=== PATIENT | male | born 1950 | race Hispanic/Latino ===

== ENCOUNTER 2019-10-29 13:47 | Inpatient (IN) | payer MEDICARE, OTHER ==
[~2019-10-29] VITALS: Ht 170.2 cm; Wt 76.1 kg
--- OUTSIDE RECORDS SUMMARY | 2019-10-29 13:50 | XMS REPORT | Continuity of Care Document ---
Author Author Lates[facility] ARAVIND Brower [employer] Address Unknown Phone Unavailable Care Team Providers Care Remarketing Rep Name Role Phone [employer] Unavailable Un available Problems Problem Status Onset Date Classification Date Reported Comments Source UNK Active 1 [facility] Angina (disorder) Active Problem 03/09/2017 [facility] Atrial fibrillation (disorder) Active Problem [facility] Coronary arteriosclerosis (disorder) Active Problem [facility] Diabetes mellitus (disorder) A ctive Problem [facility] Gastroesophageal reflux disease (disorder) Active Problem 03/09/2017 [facility] Inguinal hernia (disorder) Act arnold Problem [facility] Mixed anxiety and depressive disorder (disorder) Active Problem 03/09/2017 [facility] Medications Medication Details Route Status Patient Instructions Ordering Provider Order Date Source Oxycodone Hydrochloride 5 MG Oral Tablet 5 mg, Route: PO, Drug form: TAB, ONCE, Dosing Weight 88.892, kg, PRN Pain Score 4-6, Start date: 03/06/17 12:14:00 CDT Inactive 03/06/2017 [facility] Oxycodone Hydrochloride 5 MG Oral Tablet 5 mg, Route: PO, Drug form: TAB, ONCE, Dosing Weight 88.892, kg, PRN Pain Score 4-6, Start date: 03/06/17 11:20:00 CDT Inactive 03/06/2017 [facility] Hydromorphone 0.5 mg, Route: I [employer], Q5Min, Dosing Weight 88.892, kg, PRN Pain Score 7-10, Start date: 03/06/17 10:20:00 CDT, Duration: 4 doses or times, Stop date: Limited # of times Inactive 03/06/2017 [facility] Fentanyl 25 microgram, Route: IVP, Q5Min, Dosing Weight 88.892, kg, PRN Pain Score 4-6, Priority: Routine, Start date: 03/06/17 10:20:00 CDT, Duration: 4 doses or times, Stop date: Limited # of times Inactive 03/06/2017 [facility] Naloxone 0.4 mg, Route: IVP, Q 2MIN, Dosing Weight 88.892, kg, PRN Narcotic Reversal, Start date: 03/06/17 10:20:00 CDT, Duration: 8 doses or times, Stop date: Limited # of times Inactive 03/06/2017 [facility] Flumazenil 0.2 mg, Route: IVP, PRN, Dosing Weight 88.892, kg, PRN Benzodiazepine Reversal, Initial dose, Start date: 03/06/17 10:20:00 CDT, Duration: 30 day, Stop date: 04/05/17 9:19:00 [employer]ING COORDINATOR Inactive 03/06/2017 [facility] Ondansetron 4 mg, Route: IVP, ONCE, Dosing Weight 88.892, kg, PRN Nausea & Vomiting, Start date: 03/06/17 10:20:00 CDT Inactive 03/06/2017 [facility] Promethazine 6.25 mg, Route: I VPB, ONCE, Dosing Weight 88.892, kg, PRN Nausea & Vomiting, Start date: 03/06/17 10:20:00 CDT Inactive 03/06/2017 [facility] Acetaminophen 325 MG / Hydrocodone Narinder trate 10 MG Oral Tablet 1 tab, PO, Q4H, PRN Pain Score 4-6, 0 Refill(s) Active 03/06/2017 [facility] Acetaminophen 325 MG / Hydrocodone Narinder trate 10 MG Oral Tablet 1 tab, Route: PO, Dosing Weight 88.892, kg, Q4H, PRN Pain Score 4-6, Start date: 03/06/17 10:08:00 CDT, Duration: 30 day, Stop date: 04/05/17 10:07:00 BILLING COORDINATOR Inactive 03/06/2017 [facility] Acetaminophen 325 MG / Hydrocodone Narinder trate 5 MG Oral Tablet 1 tab, Route: PO, Dosing Weight 88.892, kg, Q4H, PRN Pain Score 4-6, Start date: 03/06/17 10:08:00 CDT, Duration: 30 day, Stop date: 04/05/17 10:07:00 BILLING COORDINATOR Inactive 03/06/2017 [facility] Hydromorphone 0.3 mg, Route: I [employer], Q3H, Dosing Weight 88.892, kg, PRN Pain Score 4-6, Start date: 03/06/17 10:08:00 CDT, Duration: 30 day, Stop date: 04/05/17 10:07:00 BILLING COORDINATOR Inactive 03/06/2017 [facility] glycopyrrolate (ANES) Route: I V, Drug form: INJ, ONCE, Stop date: 03/06/17 10:07:00 CDT Inactive 03/06/2017 [facility] neostigmine (ANES) Route: IV, Drug form: INJ, ONCE, Stop date: 03/06/17 10:07:00 CDT Inactive 03/06/2017 [facility] ondansetron (ANES) Route: IV, Drug form: INJ, ONCE, Stop date: 03/06/17 10:07:00 CDT Inactive 03/06/2017 [facility] acetaminophen (ANES) Route: IV , Drug form: INJ, ONCE, Stop date: 03/06/17 10:01:00 CDT Inactive 03/06/2017 [facility] ceFAZolin (ANES) Route: IV, Dr ug form: INJ, ONCE, Stop date: 03/06/17 8:46:00 CDT Inactive 03/06/2017 [facility] propofol (ANES) Route: IV, Aries g form: INJ, ONCE, Stop date: 03/06/17 8:36:00 CDT Inactive 03/06/2017 [facility] fentaNYL (ANES) Route: IV, Aries g form: INJ, ONCE, Stop date: 03/06/17 8:36:00 CDT Inactive 03/06/2017 [facility] lidocaine (ANES) Route: IV, Dr ug form: INJ, ONCE, Stop date: 03/06/17 8:36:00 CDT Inactive 03/06/2017 [facility] rocuronium (ANES) Route: IV, D rug form: INJ, ONCE, Stop date: 03/06/17 8:36:00 CDT Inactive 03/06/2017 [facility] phenylephrine (ANES) Route: IV , Drug form: INJ, ONCE, Stop date: 03/06/17 8:26:00 CDT Inactive 03/06/2017 [facility] 72 HR Scopolamine 0.0139 MG/HR Transdermal Patch 1 patch, Route: TOP, Drug Form: ERFILM, Dosing Weight 88.892, kg, ONCE, Start date: 03/06/17 7:41:00 CDT, Stop date: 03/06/17 7:41:00 CDT Inactive 03/06/2017 [facility] LR 1000 mL INJ (ANES) Route: I V, Total Volume: 1,000, Start date: 03/06/17 7:30:00 CDT, Stop date: 03/06/17 8:30:00 CDT Inactive 03/06/2017 [facility] Calcium Chloride 0.0014 MEQ/ML / Potassi um Chloride 0.004 MEQ/ML / Sodium Chloride 0.103 MEQ/ML / Sodium Lactate 0.028 MEQ/ML Injectable Solution 1,000 mL, Rate: 25 ml/hr, Infuse over: 4 0 hr, Route: IV, Dosing Weight 88.892 kg, Total Volume: 1,000, Start date: 03/06/17 7:18:00 CDT, Duration: 1 day, Stop date: 03/07/17 7:17:00 CDT Inactive 03/06/2017 [facility] glimepiride 4 mg oral tablet 4 mg = 1 tab, PO, Breakfast, # 30 tab, 0 Refill(s) Active 03/02/2017 [facility] Furosemide 40 MG Oral Tablet 4 0 mg = 1 tab, PO, Daily, # 30 tab, 0 Refill(s) Active 03/02/2017 [facility] AMIODarone 200 mg oral tablet See Instructions, 0.5 tab in the AM and 0.5 tab in the PM, 0 Refill(s) Active 03/02/2017 [facility] rivaroxaban 20 MG Oral Tablet [Xarelto] 20 mg = 1 tab, PO, QPM, # 30 tab, 3 Refill(s) No Longer Active 03/02/2017 [facility] metoprolol 100 mg oral tablet, extended release 100 mg = 1 tab, PO, Daily, # 30 tab, 0 Refill(s) Active 03/02/2017 [facility] escitalopram 10 mg oral tablet 10 mg = 1 tab, PO, Daily, # 30 tab, 0 Refill(s) Active 03/02/2017 [facility] isosorbide mononitrate 30 mg oral tablet , extended release 30 mg = 1 tab, PO, QAM, # 30 tab, 0 Refill(s) Active 03/02/2017 [facility] pantoprazole 40 mg oral enteric coated tablet 40 mg = 1 tab, PO, Daily, # 30 tab, 0 Refill(s) Active 03/02/2017 [facility] levothyroxine 50 mcg (0.05 mg) oral tablet 50 microgram = 1 tab, PO, Daily, # 30 tab, 0 Refill(s) Active 03/02/2017 [facility] Allergies, Adverse Reactions, Alerts No Known Medication Allergies Immunizations No Data Provided for This Section Results Order Name Results Value Reference Range Date Interpretation Comments Source CHEM PANEL Globulin 4.2 2.7 - 4.2 03/02/2017 [facility] CHEM PANEL B/C Ratio 9 6 - 25 03/02/2017 [facility] CHEM PANEL AGAP 15.2 10.0 - 20.0 03/02/2017 [facility] CHEM PANEL A/G Ratio 0.9 0.7 - 1.6 03/02/2017 [facility] CHEM PANEL eGFR 47 03/02/2017 Result Comment: The eGFR is calculated using the CKD-EPI formula. In most young, healthy individuals the eGFR will be >90 mL/min/1.73m2. The eGFR declines with age. An eGFR of 60-89 may be normal in some populations, particularly the elderly, for whom the CKD-EPI formula has not been extensively validated. Use of the eGFR is not recommended in the following populations:

Individuals with unstable creatinine concentrations, including patients and those with serious co-morbid conditions.

Patients with extremes in muscle mass or diet.

The data above are obtained from the National Kidney Disease Education Program (NKDEP) which additionally recommends that when the eGFR is used in patients with extremes of body mass index for purposes of drug dosing, the eGFR should be multiplied by the estimated BMI. [facility] CHEM PANEL Potassium Lvl 4.2 3.5 - 5.1 03/02/2017 [facility] CHEM PANEL Chloride Lvl 103 95 - 109 03/02/2017 [facility] CHEM PANEL Sodium Lvl 142 135 - 145 03/02/2017 [facility] CHEM PANEL Calcium Lvl 9.2 8.5 - 10.5 03/02/2017 [facility] CHEM PANEL Total Protein 8.0 6.4 - 8.4 03/02/2017 [facility] CHEM PANEL CO2 28 24 - 32 03/02/2017 [facility] CHEM PANEL Albumin Lvl 3.8 3.5 - 5.0 03/02/2017 [facility] CHEM PANEL ALT 67 0 - 65 03/02/2017 [facility] CHEM PANEL AST 48 0 - 37 03/02/2017 [facility] CHEM PANEL Alk Phos 116 39 - 136 03/02/2017 [facility] CHEM PANEL Bili Total 0.7 0.2 - 1.3 03/02/2017 [facility] CHEM PANEL Creatinine Lvl 1.50 0.50 - 1.40 03/02/2017 [facility] CHEM PANEL BUN 13 7 - 22 03/02/2017 [facility] CHEM PANEL Glucose Lvl 143 70 - 99 03/02/2017 [facility] HEMATOLOGY RDW 14.8 11.5 - 14.5 03/02/2017 [facility] HEMATOLOGY MPV 8.7 7.4 - 10.4 03/02/2017 [facility] HEMATOLOGY Platelet 191 133 - 450 03/02/2017 [facility] HEMATOLOGY MCHC 33.2 32.0 - 36.0 03/02/2017 [facility] HEMATOLOGY MCH 28.8 27.0 - 31.0 03/02/2017 [facility] HEMATOLOGY MCV 86.6 80.0 - 94.0 03/02/2017 [facility] HEMATOLOGY WBC 6.2 3.7 - 10.4 03/02/2017 [facility] HEMATOLOGY RBC 4.87 4.70 - 6.10 03/02/2017 [facility] HEMATOLOGY Hgb 14.0 14.0 - 18.0 03/02/2017 [facility] HEMATOLOGY Hct 42.2 42.0 - 54.0 03/02/2017 [facility] HEMATOLOGY Lymphocytes 27.7 20.0 - 40.0 03/02/2017 [facility] HEMATOLOGY Segs 59.9 45.0 - 75.0 03/02/2017 [facility] HEMATOLOGY Basophils 0.3 0.0 - 1.0 03/02/2017 [facility] HEMATOLOGY Eosinophils 2.9 0.0 - 4.0 03/02/2017 [facility] HEMATOLOGY Monocytes 9.2 2.0 - 12.0 03/02/2017 [facility] HEMATOLOGY Eosinophils # 0.2 0.0 - 0.5 03/02/2017 [facility] HEMATOLOGY Segs-Bands # 3.7 1.5 - 8.1 03/02/2017 [facility] HEMATOLOGY Monocytes # 0.6 0.0 - 0.8 03/02/2017 [facility] HEMATOLOGY Lymphocytes # 1.7 1.0 - 5.5 03/02/2017 [facility] Pathology Reports No Data Provided for This Section Diagnostic Reports No Data Provided for This Section Consultation Notes No Data Provided for This Section Discharge Summaries No Data Provided for This Section History and Physicals No Data Provided for This Section Vital Signs Vital Sign Value Date Comments Source Systolic (mm Hg) 130 03/06/2017 [facility] Diastolic (mm Hg) 70 03/06/2017 [facility] Systolic (mm Hg) 118 03/06/2017 [facility] Diastolic (mm Hg) 53 03/06/2017 [facility] Respitory Rate 12 03/06/2017 [facility] Systolic (mm Hg) 120 03/06/2017 [facility] Diastolic (mm Hg) 78 03/06/2017 [facility] Respitory Rate 12 03/06/2017 [facility] Respitory Rate 14 03/06/2017 [facility] Heart Rate 100 03/06/2017 [facility] Temperature Oral (F) 98.3 F 03/02/2017 [facility] Heart Rate 59 03/02/2017 [facility] Weight 88.892 03/02/2017 [facility] BMI Calculated 28.94 03/02/2017 [facility] Height 175.26 cm 03/02/2017 [facility] Encounters Location Location Details Encounter Type Encounter Number Reason For Visit Attending Provider ADM Date DC Date Status Source [facility] [id number] Thor Osei 03/06/2017 03/06/2017 [facility] Procedures Procedure Code Date Perfomer Comments Source BA - Barium enema [id number] [facility] Biopsy of lymph node [id number] [facility] CABG x 2 - Coronary artery bypass grafts x 2 [id number] [facility] Colonoscopy [id number] [facility] Assessment and Plan No Data Provided for This Section Plan of Care No Data Provided for This Section Social History Social History Date Source Social History TypeResponse Substance Abuse Use: None. Alcohol Past, Previous treatment: None. Smoking Status Former smoker; Exposure to Tobacco Smoke None; Cigarette Smoking Last 365 Days No; Reg Smoking Cessation Counseling No 03/02/2017 [facility] Family History No Data Provided for This Section Advance Directives No Data Provided for This Section Functional Status No Data Provided for This Section
--- OUTSIDE RECORDS SUMMARY | 2019-10-29 13:50 | XMS REPORT | Continuity of Care Document ---
Author Author [facility] t Organization [facility] Address [address] [place] [address] Phone Unavailable Care Team Providers Care Outreach Liaison Name Role Phone SHAQ MARISCAL Attphys Unavailable Brayden Osei Attphys Payers Payer Name Policy Type Policy Number Effective Date Expiration Date S ource Problems Condition Name Condition Details Condition Category Status Onset Date Resolution Date Last Treatment Date Treating Clinician Comments Source NELSON RYDERK Active 02/27/2017 [facility] Diagnosis Active 2017-02-27 00:00:00 2017-03-06 10:37:00 M nayan Hitchcock Angina (disorder) Ermelinda na (disorder) Active Problem 03/09/2017 [facility] Problem Active 2017-03-09 01:10:28 Latesha Hitchcock Atrial fibrillation (disorder) Atrial fibrillation (disorder) Active Problem 03/09/2017 [facility] Problem Active 2017-03-09 01:10:28 Latesha Hitchcock Coronary arteriosclerosis (disorder) Coronary arteriosclerosis (disorder) Active Problem 03/09/2017 [facility] Problem Active 2017-03-09 01:10:28 Latesha Hitchcock Diabetes mellitus (disorder) D iabetes mellitus (disorder) Active Problem 03/09/2017 [facility] Problem Active 2017-03-09 01:10:28 Latesha Hitchcock Gastroesophageal reflux disease (disorder) Gastroesophageal reflux disease (disorder) Active Problem 03/09/2017 [facility] Problem Active 2017-03-09 01:10:28 [facility] [place] Inguinal hernia (disorder) Ing uinal hernia (disorder) Active Problem 03/09/2017 [facility] Problem Active 2017-03-09 01:10:28 Latesha Hitchcock Mixed anxiety and depressive disorder (disorder) Mixed anxiety and depressive disorder (disorder) Active Problem 03/09/2017 [facility] Problem Active 2017-03-09 01:10:28 [facility] Allergies, Adverse Reactions, Alerts Allergy Name Allergy Type Status Severity Reaction(s) Onset Date Inacti ve Date Treating Clinician Comments Source No Known Allergies DA Active U 2017-02-21 00:00:00 [facility] Social History Social Habit Start Date Stop Date Quantity Comments Source Social History 2017-03-02 19:53:32 2017-03-02 19:53:32 [facility] [place] Medications Ordered Medication Name Filled Medication Name Start Date Stop Da te Current Medication? Ordering Clinician Indication Dosage Frequency Signature (SIG) Comments Components Source Oxycodone Hydrochloride 5 MG Oral Tablet 2017-03-06 17:14:00 No 5 mg, Route: PO, Drug form: TAB, ONCE, Dosing Weight 88.892, kg, PRN Pain Score 4- 6, Start date: 03/06/17 12:14:00 CDT [facility] oriaurora Hitchcock Oxycodone Hydrochloride 5 MG Oral Tablet 2017-03-06 16:20:00 No 5 mg, Route: PO, Drug form: TAB, ONCE, Dosing Weight 88.892, kg, PRN Pain Score 4- 6, Start date: 03/06/17 11:20:00 CDT [facility] Hitchcock Hydromorphone 2017-03-06 15:20:00 No 0.5 mg, Route: IVP, Q5Min, Dosing Weight 88.892, kg, PRN Pain Score 7-10, Start date: 03/06/17 10:20:00 CDT, Duration: 4 doses or times, Stop date: Limited # of times [facility] [place] Fentanyl 2017-03-06 15:20:00 No 25 microgram, Route: IVP, Q5Min, Dosing Weight 88.892, kg, PRN Pain Score 4-6, Priority: Routine, Start date: 03/06/17 10:20:00 CDT, Duration: 4 doses or times, Stop date: Limited # of times Latesha Hitchcock Naloxone 2017-03-06 15:20:00 No 0.4 mg, Route: IVP, Q2MIN, Dosing Weight 88.892, kg, PRN Narcotic Reversal, Start date: 03/06/17 10:20:00 CDT, Duration: 8 doses or times, Stop date: Limited # of times Latesha Hitchcock Flumazenil 2017-03-06 15:20:00 No 0.2 mg, Route: IVP, PRN, Dosing Weight 88.892, kg, PRN Benzodiazepine Reversal, Initial dose, Start date: 03/06/17 10:20:00 CDT, Duration: 30 day, Stop date: 04/05/17 9:19:00 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 [place] Promethazine 2017-03-06 15:20:00 No 6.25 mg, Route: IVPB, ONCE, Dosing Weight 88.892, kg, PRN Nausea & Vomiting, Start date: 03/06/17 10:20:[address] [facility] [place] Acetaminophen 325 MG / Hydrocodone Bitartrate 10 MG Oral Tab let 2017-03-06 15:10:00 Yes 1 tab, PO, Q4H, PRN Pain Scor e 4-6, 0 Refill(s) [facility] Acetaminophen 325 MG / Hydrocodone Bitartrate 10 MG Oral Tab let 2017-03-06 15:08:00 No 1 tab, Rou te: PO, Dosing Weight 88.892, kg, Q4H, PRN Pain Score 4-6, Start date: 03/06/17 10:08:00 CDT, Duration: 30 day, Stop date: 04/05/17 10:07:[address]EMENT [address]MINISTRATOR [facility] [place] Acetaminophen 325 MG / Hydrocodone Bitartrate 5 MG Oral Tabl et 2017-03-06 15:08:00 No 1 tab, Rou te: PO, Dosing Weight 88.892, kg, Q4H, PRN Pain Score 4-6, Start date: 03/06/17 10:08:00 CDT, Duration: 30 day, Stop date: 04/05/17 10:07:00 [facility] Hydromorphone 2017-03-06 15:08:00 No 0.3 mg, Route: IVP, Q3H, Dosing Weight 88.892, kg, PRN Pain Score 4-6, Start date: 03/06/17 10:08:00 CDT, Duration: 30 day, Stop date: 04/05/17 10:07:00 [facility] glycopyrrolate (ANES) 2017-03-06 15:07:00 No Route: IV, Drug form: INJ, ONCE, Stop date: 03/06/17 10:07:00 CDT [facility] neostigmine (ANES) 2017-03-06 15:07:00 No Route: IV, Drug form: INJ, ONCE, Stop date: 03/06/17 10:07:00 [facility] (GINAS[facility] 2017-03-06 15:07:00 No Route: IV, Drug form: INJ, ONCE, Stop date: 03/06/17 10:07:00 CDT [facility] acetaminophen (ANES) 2017-03-06 15:01:00 No Route: IV, Drug form: INJ, ONCE, Stop date: 03/06/17 10:01:00 CDT [facility] ceFAZolin ([facility]) 2017-03-06 13:46:00 No Route: IV, Drug form: INJ, ONCE, Stop date: 03/06/17 8:46:00 CDT [facility] [place] propofol (ANES) 2017-03-06 13:36:00 No Route: IV, Drug form: INJ, ONCE, Stop date: 03/06/17 8:36:00 [facility] fenta[facility]L (ANES) 2017-03-06 13:36:00 No Route: IV, Drug form: INJ, ONCE, Stop date: 03/06/17 8:36:00 [facility] (ANES) 2017-03-06 13:36:00 No Route: IV, Drug form: INJ, ONCE, Stop date: 03/06/17 8:36:00 CDT Nd dann Hitchcock rocuronium (ANES) 2017-03-06 13:36:00 No Route: IV, Drug form: INJ, ONCE, Stop date: 03/06/17 8:36:00 CDT [facility] [place] phenylephrine (ANES) 2017-03-06 13:26:00 No Route: IV, Drug form: INJ, ONCE, Stop date: 03/06/17 8:26:00 CDT Latesha Hitchcock 72 HR Scopolamine 0.0139 MG/HR Transdermal Patch 2017-03-06 12:4 1:00 No 1 patch, Route: TOP, Drug Fo rm: ERFILM, Dosing Weight 88.892, kg, ONCE, Start date: 03/06/17 7:41:00 CDT, Stop date: 03/06/17 7:41:00 CDT Latesha Hitchcock LR 1000 mL INJ (ANES) 2017-03-06 12:30:00 No Route: IV, Total Volume: 1,000, Start date: 03/06/17 7:30:00 CDT, Stop date: 03/06/17 8:30:00 CDT Latesha Hitchcock Calcium Chloride 0.0014 MEQ/ML / Potassi um Chloride 0.004 MEQ/ML / Sodium Chloride 0.103 MEQ/ML / Sodium Lactate 0.028 MEQ/ML Injectable Solution 2017-03-06 12:18:00 No 1,000 mL, Rate: 25 ml/hr, Infuse over: 40 hr, Route: IV, Dosing Weight 88.892 kg, Total Volume: 1,000, Start date: 03/06/17 7:18:00 CDT, Duration: 1 day, Stop date: 03/07/17 7:17:00 CDT Latesha Hitchcock glimepiride 4 mg oral tablet 2017-03-02 20:27:00 Yes 4 mg = 1 tab, PO, Breakfast, # 30 tab, 0 Refill(s) [facility] [place] Furosemide 40 MG Oral Tablet 2017-03-02 20:26:00 Yes 40 mg = 1 tab, PO, Daily, # 30 tab, 0 Refill(s) Alphonseoria l [place] AMIODarone 200 mg oral tablet 2017-03-02 20:26:00 Yes See Instructions, 0.5 tab in the AM and 0.5 tab in the PM, 0 Refill(s) Latesha Hitchcock rivaroxaban 20 MG Oral Tablet [Xarelto] 2017-03-02 20:26:00 No 20 mg = 1 tab, PO, QPM, # 30 tab, 3 Refill(s) Latesha Hitchcock metoprolol 100 mg oral tablet, extended release 2017-03-02 20:26 :00 Yes 100 mg = 1 tab, PO, Daily, # 30 tab, 0 Refill(s) Latesha Hitchcock escitalopram 10 mg oral tablet 2017-03-02 20:25:00 Yes 10 mg = 1 tab, PO, Daily, # 30 tab, 0 Refill(s) [facility] [address] isosorbide mononitrate 30 mg oral tablet, extended release 2017-03-02 20:25:00 Yes 30 mg = 1 tab, PO, QAM, # 30 ta b, 0 Refill(s) Latesha Hitchcock pantoprazole 40 mg oral enteric coated tablet 2017-03-02 20:25:0 0 Yes 40 mg = 1 tab, PO, Daily, # 30 tab, 0 Refill(s) Latesha Hitchcock levothyroxine 50 mcg (0.05 mg) oral tablet 2017-03-02 20:25:00 Yes 50 microgram = 1 tab, PO, Daily, # 30 tab, 0 Refill(s) Latesha Hitchcock Vital Signs Vital Name Observation Time Observation Value Comments Source Systolic (mm Hg) 2017-03-06 18:15:00 [facility]to [facility] [place] Diastolic (mm Hg) 2017-03-06 18:15:00 [facility] [place] Systolic (mm Hg) 2017-03-06 16:00:00 Gilberto rial [place] Diastolic (mm Hg) 2017-03-06 16:00:00 Mem [facility] [place] Respitory Rate 2017-03-06 16:00:00 Memori al [place] Systolic (mm Hg) 2017-03-06 15:45:00 Gilberto rial [place] Diastolic (mm Hg) 2017-03-06 15:45:00 Mem [facility] [place] Respitory Rate 2017-03-06 15:45:00 Mem[facility] [place] Respitory Rate 2017-03-06 15:30:00 [facility] Heart Rate 2017-03-06 12:19:00 Latesha Hitchcock Temperature Oral (F) 2017-03-02 19:57:00 98.3 F [facility] [place] Heart Rate 2017-03-02 19:57:00 [facility] [place] Weight 2017-03-02 19:57:00 [facility] [place] BMI Calculated 2017-03-02 19:57:00 [facility] Height 2017-03-02 19:57:00 175.26 cm [facility] Procedures Procedure Date / Time Performed Performing Clinician Sourluis enrique e BA - Barium enema [facility] Biopsy of lymph node [facility] rmann CABG x 2 - Coronary artery bypass grafts x 2 [facility] Colonoscopy [facility] Encounters Start Date/Time End Date/Time Encounter Type Admission Type [facility] Care Department Encounter ID Source 2017-03-06 05:33:00 2017-03-06 13:39:[address] [id number] Results Test Description Test Time Test Comments Results Result Comments Source US ABDOMEN COMPLETE 2019-05-05 15:11:00 [place] [address] Patient Name: ARAVIND MATTHEWS MR #: [id number] : 1950 Age/Sex: 68/M Req #: [id number] Adm Physician: Ordered by: SHAQ MARISCAL MD Report #: [id number] Location: MS Room/Bed: Procedure: [id number] US/US ABDOMEN COMPLETE Exam Date: 05/05/19 Exam Time: 0858 REPORT STATUS: Signed EXAM: US ABDOMEN COMPLETE DATE: 05/05/2019 7:57 AM INDICATION: Abdominal pain COMPARISON: None TECHNIQUE: Transverse and longitudinal vallecillo scale and color doppler sonographic images of the upper abdomen were obtained. FINDINGS: LIVER 13.0 cm in the right midclavicular line. Normal echogenicity of the liver with normal contour, no masses. Right hepatic cyst measures 2.1 cm. SPLEEN 11 point cm in maximum diameter. Normal echogenicity, no masses. GALLBLADDER Small amount of sludge in the gallbladder. No gallbladder wall thickening, distension, stone, or pericholecystic fluid. Negative reported sonographic Ballesteros's sign. The gallbladder wall measures 3 mm. BILE DUCTS No intra nor extra-hepatic biliary dilation. Common bile duct measures 4 mm PANCREAS: Visualized portions are normal. RIGHT KIDNEY: 11.2 cm Echogenicity: Normal Collecting System: No hydronephrosis Stones: None Cyst/Mass: Multiple simple cysts, the largest measuring up to 2.6 cm at the lower pole. LEFT KIDNEY: 11.2 cm Echogenicity: Normal Collecting System: No hydronephrosis Stones: None Cyst/Mass: Multiple simple cysts, the largest measuring up to 4.7 cm at the midpole. VESSELS: Aorta: Visualized portions are within normal size limits Inferior Vena Cava: Visualized portions are normal Main Portal Vein: 1.0 cm, normal size with hepatopetal flow. FREE FLUID: None IMPRESSION: Gallbladder sludge without sonographic evidence of cholecystitis. Simple renal cysts as above. Right hepatic cyst. Signed by: Janelle Galarza MD on 05/05/2019 3:14 PM Dictated By: JANELLE GALARZA MD Transcribed By: LAN on 05/05/19 1513 COPY TO: SHAQ MARISCAL MD CT BRAIN WO 2019-05-05 12:09:00 [place] [address] Patient Name: ARAVIND MATTHEWS MR #: [id number] : 1950 Age/Sex: 68/M Req #: [id number] Adm Physician: Ordered by: SHAQ MARISCAL MD Report #: [id number] Location: CT Room/Bed: Procedure: [id number] CT/CT BRAIN WO Exam Date: 05/05/19 Exam Time: 814 REPORT STATUS: Signed CT BRAIN WO HISTORY: Weakness, headache COMPARISON: None. Technique: Noncontrast axial scans were obtained from skull base to the vertex. Coronal and sagittal reconstructions obtained from the axial data. One or more of the following dose reduction techniques were used: Automated exposure control, adjustment of the mA and/or kV according to patient size, and/or utilization of iterative reconstruction technique. DISCUSSION: Scalp/Skull: Unremarkable. Brain sulci: Mildly prominent. Ventricles: Compensatory dilatation. Extra-axial spaces: No masses or fluid collections. Carotid siphon calcifications are present. Parenchyma: No definite abnormal densities. No masses, hemorrhage, or large vascular territory acute infarct. Dural sinuses: No abnormal densities. Sellar/Suprasellar region: Intact. Skull base: Intact. Incidental findings: None. IMPRESSION: 1. No acute intracranial abnormalities. 2. Generalized cerebral volume loss. Signed by: Dr. Luis Angel Lam M.D. on 05/05/2019 12:11 PM Dictated By: LUIS ANGEL LAM MD 1211 Transcribed By: LAN on 05/05/19 1211 COPY TO: SHAQ MARISCAL MD CHEST 2 VIEWS 2019-05-05 09:09:00 [place] [address] Patient Name: ARAVIND MATTHEWS MR #: [id number] : 1950 Age/Sex: 68/M Req #: [id number] Adm Physician: Ordered by: SHAQ MARISCAL MD Report #: [id number] Location: CT Room/Bed: Procedure: [id number] DX/CHEST 2 VIEWS Exam Date: 05/05/19 Exam Time: 813 REPORT STATUS: Signed EXAMINATION: CHEST 2 VIEWS INDICATION: Shortness of breath COMPARISON: None FINDINGS: LINES/TUBES:Left chest pacer. LUNGS:The lungs are well-inflated. There is perihilar fullness and indistinctness of the pulmonary vasculature. PLEURA:Trace right pleural effusion. No pneumothorax. MEDIASTINUM:The cardiomediastinal silhouette appears slightly enlarged. Postoperative findings of prior CABG. BONES/SOFT TISSUES:Sternotomy wires intact. ABDOMEN:No free air under the diaphragm. IMPRESSION: Mild interstitial pulmonary edema. Trace right pleural effusion. Signed by: Janelle Galarza MD on 05/05/2019 9:11 AM Dictated By: JANELLE GALARZA MD 0 Transcribed By: LAN on 05/05/19910 COPY TO: SHAQ MARISCAL MD GASTRIC,BIOPSY 2018-07-17 15:20:00 RUN DATE: 07/17/18 [facility] PAGE 1 RUN TIME: 1520 Specimen Inquiry RUN USER: INTERFACE PATIENT: ARAVIND MATTHEWS LOC: ANGEL Landrum #: [id number] AGE/SX: 67/M ROOM: RE07/16/18REG DR: Ciro Layne MD : [birth year] BED: DIS: [place]US: [facility] [place]: SPEC #: [id number] RECD: 07/16/18 STATUS: AZUCENA TOLU #: [id number] SCARLETT: 07/16/18 [facility] DR: Ciro Layne MD ENTERED: 07/16/18 SP TYPE: GASTRIC BX OTHR DR: Shaq Mariscal MD ORDERED: GROSS COPIES TO: Ciro Layne MD [address] [place] [address] Shaq Mariscal MD [address] [place] [address] PROCEDURES: GROSS (07/17/18-1209) TISSUES: 1. ANTRUM - BX COLD 2. ESOPHAGUS, NOS - BX COLD CLINICAL HISTORY COLLECTION DATE: 07/16/18 DIARRHEA, DYSPHAGIA FINAL DIAGNOSIS Stomach, antrum, biopsy: CHRONIC ACTIVE GASTRITIS, MILD POSITIVE FOR H. PYLORI ORGANISMS NEGATIVE FOR INTESTINAL METAPLASIA, DYSPLASIA OR MALIGNANCY Esophagus, biopsy: MILD REFLUX ESOPHAGITIS CHRONIC CARDITIS, MILD TO MODERATE NEGATIVE FOR INTESTINAL METAPLASIA, DYSPLASIA OR MALIGNANCY FA/sm D (1) [phone], 51260 CONTINUED ON NEXT PAGE RUN DATE: 07/17/18 [facility] PAGE 2 RUN TIME: 1520 Specimen Inquiry RUN USER: INTERFACE SPEC #: [id number] PATIENT: ARAVIND MATTHEWS #[id number] (Continued) MACROSCOPIC The first specimen is received in formalin, labeled with the patient's name, identified as "antrum bx". It consists of multiple portions of arthur pink soft biopsy tissue ranging from 0.2 to 0.3 cm, submitted as (1) for H E and Giemsa stains. The second specimen is received in formalin, labeled with the patient's name, identified as "esophagus". It consists of multiple fragments ranging from 0.2 to 0.4 cm, submitted as (2). GROSS PERFORMED AT [facility] [address] [place] [id number] [phone] MICROSCOPIC Sections show gastric mucosa with superficial band of chronic inflammatory infiltrates of the lamina propria, minute lymphoid aggregates and rare foci of intraepithelial neutrophils. Sections of the esophagus shows squamocolumnar mucosa. The squamous mucosa shows a occasional intraepithelial chronic inflammatory cells and basal layer hyperplasia consistent with mild reflux esophagitis. The cardiac gastric mucosa shows mild to moderate chronic inflammatory infiltrates. No microorganisms, intestinal metaplasia, dysplasia or malignancy is identified. MICROSCOPIC PERFORMED AT [facility] All of the stains, including any controls performed, stain appropriately. [address] [address] [phone] PERFORMING SITE Diagnosis performed at: [facility] [address] [facility] [place] [address] CONTINUED ON NEXT PAGE RUN DATE: 07/17/18 [place] - Lab PAGE 3 RUN TIME: 1520 Specimen Inquiry RUN USER: INTERFACE SPEC #: [id number] PATIENT: ARAVIND MATTHEWS #[id number] (Continued) Signed SIGNATURE ON FILE Ashley Heredia MD 07/17/18 1520 END OF REPORT GLUBED 2018-07-16 10:12:00 Test Item GLUBED (test code = GLUBED) 133 mg/dL 74-106 H Performed by certified laminating press operator at [facility] SED RATE [id number] 17:16:00* Test Item Value Reference Range Interpretation Comments SED RATE WESTERGREN (test code = SEDW) 28 mm/hr 0-15 H SED [id number] 17:16:00* Test Item Value Reference Range Interpretation Comments SED RATE (test code = SEDW) 28 mm/hr 0-15 H WINTROBE METHOD: NORMAL RANGE FOR MEN: 0-9 MM/HR WOMAN: 0-20 MM/HR CBC W/AUTO [id number] 12:40:00* Test Item Value Reference Range Interpretation Comments WHITE BLOOD CELL (test code = WBC) 5.8 K/mm3 4.5-12.5 N RED BLOOD CELL (test code = RBC) 4.35 mill/mm3 4.0-5.8 N HEMOGLOBIN (test code = HGB) 10.3 gram/dL 13.0-17.5 L HEMATOCRIT (test code = HCT) 35.3 % 42.0-52.0 L MEAN CELL VOLUME (test code = MCV) 81.1 fL 80-98 N MEAN CELL HGB (test code = MCH) 23.7 picogram 27.0-33.0 L MEAN CELL HGB CONCETRATION (test code = MCHC) 29.2 gram/dL 33.0-36. 0 L RED CELL DISTRIBUTION WIDTH (test code = RDW) 14.5 % 11.6-16. 2 N RED CELL DISTRIBUTION WIDTH SD (test code = RDW-SD) 42.3 fL 37 .0-51.0 N PLATELET COUNT (test code = PLT) 207 K/mm3 150-450 N MEAN PLATELET VOLUME (test code = MPV) 10.7 fL 6.7-11.0 N NEUTROPHIL % (test code = NT%) 56.5 % 39.0-69.0 N IMMATURE GRANULOCYTE % (test code = IG%) 0.3 % 0.0-5.0 N LYMPHOCYTE % (test code = LY%) 30.1 % 25.0-55.0 N MONOCYTE % (test code = MO%) 8.0 % 0.0-10.0 N EOSINOPHIL % (test code = EO%) 4.9 % 0.0-5.0 N BASOPHIL % (test code = BA%) 0.2 % 0.0-1.0 N NUCLEATED RBC % (test code = NRBC%) 0.0 % 0-0 N NEUTROPHIL # (test code = NT#) 3.25 K/mm3 1.8-7.7 N IMMATURE GRANULOCYTE # (test code = IG#) 0.02 x10 3/uL 0-0.03 N LYMPHOCYTE # (test code = LY#) 1.73 K/mm3 1.0-5.0 N MONOCYTE # (test code = MO#) 0.46 K/mm3 0-0.8 N EOSINOPHIL # (test code = EO#) 0.28 K/mm3 0.0-0.5 N BASOPHIL # (test code = BA#) 0.01 K/mm3 0.0-0.2 N NUCLEATED RBC # (test code = NRBC#) 0.00 K/mm3 0.0-0.1 N MANUAL DIFF REQUIRED (test code = MDIFF) NO, ONLY SCAN NEEDED DIFFERENTIAL [id number] 12:40:00* Test Item Value Reference Range Interpretation Comments STAIN ACCEPTABILITY (test code = STN ACCEPTABLE) STAIN ACCEPTABLE POLYCHROMASIA (test code = POLC) 1+ ANISOCYTOSIS (test code = ANISO) 1+ MICROCYTOSIS (test code = MICR) 1+ MACROCYTOSIS (test code = MACR) 1+ PLATELET ESTIMATE (test code = PLTEST) ADEQUATE PLATELET MORPHOLOGY (test code = PLTMORPH) NORMAL C REACTIVE [id number] 12:33:00* Test Item Value Reference Range Interpretation Comments C REACTIVE PROTEIN (test code = CRP) <0.29 mg/dL 0-0.3 N COMPREHENSIVE METABOLIC [id number] 12:33:00* Test Item Value Reference Range Interpretation Comments SODIUM (test code = NA) 139 mmol/L 136-145 N POTASSIUM (test code = K) 4.0 mmol/L 3.5-5.1 N CHLORIDE (test code = CL) 107.0 mmol/L 98-107 N CARBON DIOXIDE (test code = CO2) 26.0 mmol/L 21-32 N ANION GAP (test code = GAP) 10.0 10-20 N GLUCOSE (test code = GLU) 125 mg/dL 74-106 H BLOOD UREA NITROGEN (test code = BUN) 12 mg/dL 7-18 N GLOMERULAR FILTRATION RATE (test code = GFR) 55 mL/min >=60 Estimated GFR by using Modified MDRD formula.Chronic kidney disease is defined as either kidney damageor GFR <60 mL/min/1.73 m2 for >3 months. CREATININE (test code = CREAT) 1.30 mg/dL 0.7-1.3 N BUN/CREATININE RATIO (test code = BUN/CREA) 9.5 10-20 L TOTAL PROTEIN (test code = PROT) 8.1 gram/dL 6.4-8.2 N ALBUMIN (test code = ALB) 3.6 g/dL 3.4-5.0 N GLOBULIN (test code = GLOB) 4.5 gram/dL 2.7-4.2 H ALBUMIN/GLOBULIN RATIO (test code = A/G) 0.8 0.75-1.50 N CALCIUM (test code = CA) 8.4 mg/dL 8.5-10.1 L BILIRUBIN TOTAL (test code = BILT) 0.50 mg/dL 0.0-1.0 N SGOT/AST (test code = AST) 64 IUnit/L 15-37 H SGPT/ALT (test code = ALT) 57 IUnit/L 12-78 N ALKALINE PHOSPHATASE TOTAL (test code = ALKP) 164 IUnit/L 45-117 H Note change in reference range due to change in reagent. COMPREHENSIVE METABOLIC [id number] 12:25:00* Test Item Value Reference Range Interpretation Comments SODIUM (test code = NA) 139 mmol/L 136-145 N POTASSIUM (test code = K) 4.0 mmol/L 3.5-5.1 N CHLORIDE (test code = CL) 107.0 mmol/L 98-107 N CARBON DIOXIDE (test code = CO2) mmol/L 21-32 ANION GAP (test code = GAP) 10-20 GLUCOSE (test code = GLU) mg/dL 74-106 BLOOD UREA NITROGEN (test code = BUN) mg/dL 7-18 GLOMERULAR FILTRATION RATE (test code = GFR) mL/min >=60 CREATININE (test code = CREAT) mg/dL 0.7-1.3 BUN/CREATININE RATIO (test code = BUN/CREA) 10-20 TOTAL PROTEIN (test code = PROT) gram/dL 6.4-8.2 ALBUMIN (test code = ALB) g/dL 3.4-5.0 GLOBULIN (test code = GLOB) gram/dL 2.7-4.2 ALBUMIN/GLOBULIN RATIO (test code = A/G) 0.75-1.50 CALCIUM (test code = CA) mg/dL 8.5-10.1 BILIRUBIN TOTAL (test code = BILT) mg/dL 0.0-1.0 SGOT/AST (test code = AST) IUnit/L 15-37 SGPT/ALT (test code = ALT) IUnit/L 12-78 ALKALINE PHOSPHATASE TOTAL (test code = ALKP) IUnit/L 45-117 CBC W/AUTO [id number] 12:08:00* Test Item Value Reference Range Interpretation Comments WHITE BLOOD CELL (test code = WBC) 5.8 K/mm3 4.5-12.5 N RED BLOOD CELL (test code = RBC) 4.35 mill/mm3 4.0-5.8 N HEMOGLOBIN (test code = HGB) 10.3 gram/dL 13.0-17.5 L HEMATOCRIT (test code = HCT) 35.3 % 42.0-52.0 L MEAN CELL VOLUME (test code = MCV) 81.1 fL 80-98 N MEAN CELL HGB (test code = MCH) 23.7 picogram 27.0-33.0 L MEAN CELL HGB CONCETRATION (test code = MCHC) 29.2 gram/dL 33.0-36. 0 L RED CELL DISTRIBUTION WIDTH (test code = RDW) 14.5 % 11.6-16. 2 N RED CELL DISTRIBUTION WIDTH SD (test code = RDW-SD) 42.3 fL 37 .0-51.0 N PLATELET COUNT (test code = PLT) 207 K/mm3 150-450 N MEAN PLATELET VOLUME (test code = MPV) 10.7 fL 6.7-11.0 N NEUTROPHIL % (test code = NT%) 56.5 % 39.0-69.0 N IMMATURE GRANULOCYTE % (test code = IG%) 0.3 % 0.0-5.0 N LYMPHOCYTE % (test code = LY%) 30.1 % 25.0-55.0 N MONOCYTE % (test code = MO%) 8.0 % 0.0-10.0 N EOSINOPHIL % (test code = EO%) 4.9 % 0.0-5.0 N BASOPHIL % (test code = BA%) 0.2 % 0.0-1.0 N NUCLEATED RBC % (test code = NRBC%) 0.0 % 0-0 N NEUTROPHIL # (test code = NT#) 3.25 K/mm3 1.8-7.7 N IMMATURE GRANULOCYTE # (test code = IG#) 0.02 x10 3/uL 0-0.03 N LYMPHOCYTE # (test code = LY#) 1.73 K/mm3 1.0-5.0 N MONOCYTE # (test code = MO#) 0.46 K/mm3 0-0.8 N EOSINOPHIL # (test code = EO#) 0.28 K/mm3 0.0-0.5 N BASOPHIL # (test code = BA#) 0.01 K/mm3 0.0-0.2 N NUCLEATED RBC # (test code = NRBC#) 0.00 K/mm3 0.0-0.1 N MANUAL DIFF REQUIRED (test code = MDIFF) NO, ONLY SCAN NEEDED DIFFERENTIAL [id number] 12:08:00* Test Item Value Reference Range Interpretation Comments STAIN ACCEPTABILITY (test code = STN ACCEPTABLE) CABOT RINGS (test code = CAB) MORPHOLOGY COMMENT (test code = MOC) PLATELET ESTIMATE (test code = PLTEST) PLATELET MORPHOLOGY (test code = PLTMORPH) CBC W/AUTO [id number] 12:08:00* Test Item Value Reference Range Interpretation Comments WHITE BLOOD CELL (test code = WBC) 5.8 K/mm3 4.5-12.5 N RED BLOOD CELL (test code = RBC) 4.35 mill/mm3 4.0-5.8 N HEMOGLOBIN (test code = HGB) 10.3 gram/dL 13.0-17.5 L HEMATOCRIT (test code = HCT) 35.3 % 42.0-52.0 L MEAN CELL VOLUME (test code = MCV) 81.1 fL 80-98 N MEAN CELL HGB (test code = MCH) 23.7 picogram 27.0-33.0 L MEAN CELL HGB CONCETRATION (test code = MCHC) 29.2 gram/dL 33.0-36. 0 L RED CELL DISTRIBUTION WIDTH (test code = RDW) 14.5 % 11.6-16. 2 N RED CELL DISTRIBUTION WIDTH SD (test code = RDW-SD) 42.3 fL 37 .0-51.0 N PLATELET COUNT (test code = PLT) 207 K/mm3 150-450 N MEAN PLATELET VOLUME (test code = MPV) 10.7 fL 6.7-11.0 N NEUTROPHIL % (test code = NT%) 56.5 % 39.0-69.0 N IMMATURE GRANULOCYTE % (test code = IG%) 0.3 % 0.0-5.0 N LYMPHOCYTE % (test code = LY%) 30.1 % 25.0-55.0 N MONOCYTE % (test code = MO%) 8.0 % 0.0-10.0 N EOSINOPHIL % (test code = EO%) 4.9 % 0.0-5.0 N BASOPHIL % (test code = BA%) 0.2 % 0.0-1.0 N NUCLEATED RBC % (test code = NRBC%) 0.0 % 0-0 N NEUTROPHIL # (test code = NT#) 3.25 K/mm3 1.8-7.7 N IMMATURE GRANULOCYTE # (test code = IG#) 0.02 x10 3/uL 0-0.03 N LYMPHOCYTE # (test code = LY#) 1.73 K/mm3 1.0-5.0 N MONOCYTE # (test code = MO#) 0.46 K/mm3 0-0.8 N EOSINOPHIL # (test code = EO#) 0.28 K/mm3 0.0-0.5 N BASOPHIL # (test code = BA#) 0.01 K/mm3 0.0-0.2 N NUCLEATED RBC # (test code = NRBC#) 0.00 K/mm3 0.0-0.1 N MANUAL DIFF REQUIRED (test code = MDIFF) NO, ONLY SCAN NEEDED DIFFERENTIAL [id number] 12:08:00* Test Item Value Reference Range Interpretation Comments STAIN ACCEPTABILITY (test code = STN ACCEPTABLE) CABOT RINGS (test code = CAB) MORPHOLOGY COMMENT (test code = MOC) PLATELET ESTIMATE (test code = PLTEST) PLATELET MORPHOLOGY (test code = PLTMORPH) CBC W/AUTO [id number] 12:08:00* Test Item Value Reference Range Interpretation Comments WHITE BLOOD CELL (test code = WBC) 5.8 K/mm3 4.5-12.5 N RED BLOOD CELL (test code = RBC) 4.35 mill/mm3 4.0-5.8 N HEMOGLOBIN (test code = HGB) 10.3 gram/dL 13.0-17.5 L HEMATOCRIT (test code = HCT) 35.3 % 42.0-52.0 L MEAN CELL VOLUME (test code = MCV) 81.1 fL 80-98 N MEAN CELL HGB (test code = MCH) 23.7 picogram 27.0-33.0 L MEAN CELL HGB CONCETRATION (test code = MCHC) 29.2 gram/dL 33.0-36. 0 L RED CELL DISTRIBUTION WIDTH (test code = RDW) 14.5 % 11.6-16. 2 N RED CELL DISTRIBUTION WIDTH SD (test code = RDW-SD) 42.3 fL 37 .0-51.0 N PLATELET COUNT (test code = PLT) 207 K/mm3 150-450 N MEAN PLATELET VOLUME (test code = MPV) 10.7 fL 6.7-11.0 N NEUTROPHIL % (test code = NT%) 56.5 % 39.0-69.0 N IMMATURE GRANULOCYTE % (test code = IG%) 0.3 % 0.0-5.0 N LYMPHOCYTE % (test code = LY%) 30.1 % 25.0-55.0 N MONOCYTE % (test code = MO%) 8.0 % 0.0-10.0 N EOSINOPHIL % (test code = EO%) 4.9 % 0.0-5.0 N BASOPHIL % (test code = BA%) 0.2 % 0.0-1.0 N NUCLEATED RBC % (test code = NRBC%) 0.0 % 0-0 N NEUTROPHIL # (test code = NT#) 3.25 K/mm3 1.8-7.7 N IMMATURE GRANULOCYTE # (test code = IG#) 0.02 x10 3/uL 0-0.03 N LYMPHOCYTE # (test code = LY#) 1.73 K/mm3 1.0-5.0 N MONOCYTE # (test code = MO#) 0.46 K/mm3 0-0.8 N EOSINOPHIL # (test code = EO#) 0.28 K/mm3 0.0-0.5 N BASOPHIL # (test code = BA#) 0.01 K/mm3 0.0-0.2 N NUCLEATED RBC # (test code = NRBC#) 0.00 K/mm3 0.0-0.1 N MANUAL DIFF REQUIRED (test code = MDIFF) NO, ONLY SCAN NEEDED DIFFERENTIAL [id number] 12:08:00* Test Item Value Reference Range Interpretation Comments STAIN ACCEPTABILITY (test code = STN ACCEPTABLE) MORPHOLOGY COMMENT (test code = MOC) PLATELET ESTIMATE (test code = PLTEST) PLATELET MORPHOLOGY (test code = PLTMORPH) CBC W/AUTO [id number] 12:08:00* Test Item Value Reference Range Interpretation Comments WHITE BLOOD CELL (test code = WBC) 5.8 K/mm3 4.5-12.5 N RED BLOOD CELL (test code = RBC) 4.35 mill/mm3 4.0-5.8 N HEMOGLOBIN (test code = HGB) 10.3 gram/dL 13.0-17.5 L HEMATOCRIT (test code = HCT) 35.3 % 42.0-52.0 L MEAN CELL VOLUME (test code = MCV) 81.1 fL 80-98 N MEAN CELL HGB (test code = MCH) 23.7 picogram 27.0-33.0 L MEAN CELL HGB CONCETRATION (test code = MCHC) 29.2 gram/dL 33.0-36. 0 L RED CELL DISTRIBUTION WIDTH (test code = RDW) 14.5 % 11.6-16. 2 N RED CELL DISTRIBUTION WIDTH SD (test code = RDW-SD) 42.3 fL 37 .0-51.0 N PLATELET COUNT (test code = PLT) 207 K/mm3 150-450 N MEAN PLATELET VOLUME (test code = MPV) 10.7 fL 6.7-11.0 N NEUTROPHIL % (test code = NT%) 56.5 % 39.0-69.0 N IMMATURE GRANULOCYTE % (test code = IG%) 0.3 % 0.0-5.0 N LYMPHOCYTE % (test code = LY%) 30.1 % 25.0-55.0 N MONOCYTE % (test code = MO%) 8.0 % 0.0-10.0 N EOSINOPHIL % (test code = EO%) 4.9 % 0.0-5.0 N BASOPHIL % (test code = BA%) 0.2 % 0.0-1.0 N NUCLEATED RBC % (test code = NRBC%) 0.0 % 0-0 N NEUTROPHIL # (test code = NT#) 3.25 K/mm3 1.8-7.7 N IMMATURE GRANULOCYTE # (test code = IG#) 0.02 x10 3/uL 0-0.03 N LYMPHOCYTE # (test code = LY#) 1.73 K/mm3 1.0-5.0 N MONOCYTE # (test code = MO#) 0.46 K/mm3 0-0.8 N EOSINOPHIL # (test code = EO#) 0.28 K/mm3 0.0-0.5 N BASOPHIL # (test code = BA#) 0.01 K/mm3 0.0-0.2 N NUCLEATED RBC # (test code = NRBC#) 0.00 K/mm3 0.0-0.1 N MANUAL DIFF REQUIRED (test code = MDIFF) NO, ONLY SCAN NEEDED DIFFERENTIAL [id number] 12:08:00* Test Item Value Reference Range Interpretation Comments STAIN ACCEPTABILITY (test code = STN ACCEPTABLE) CABOT RINGS (test code = CAB) MORPHOLOGY COMMENT (test code = MOC) PLATELET ESTIMATE (test code = PLTEST) PLATELET MORPHOLOGY (test code = PLTMORPH) CHEM [id number] 20:31:004[facility] [id number] 20:31:009 [facility] [id number] 20:31:0015.2[facility] PANEL 2017-03-02 20:31:000.9[facility] [id number] 20:31:0047[facility] [id number] 20:31:004.2[facility] [id number] 20:31:78082Jufbjvrf HermannCHEM [id number] 20:31:75159Eeavtput HermannCHEM [id number] 20:31:009.2[facility] [id number] 20:31:008.0 [facility] [id number] 20:31:0028[facility] PANEL 2017-03-02 20:31:003.8[facility] [id number] 20:31:0067[facility] [id number] 20:31:0048[facility] [id number] 20:31:53838Gyeehutm HermannCHEM PNHYD1710-29-00 20:31:000.7[facility] [id number] 20:31:001.50[facility] [id number] 20:31:0013 [facility] [id number] 20:31:30154Dtjbfhar HermannHEMATOLOGY 2017-03-02 20:31:0014.8[facility] MantnjhYIZYVZMLDQ7922-98-18 20:31:008.7[facility] CpsdfqmZVNSBGIKYT9910-25-06 20:31:95695Asvwgssz XrluwnjQLAOTEUMGY7857-87-07 20:31:0033.2[facility] [id number] 20:31:00* Test Item Value Reference Range Interpretation Comments MCH (test code = MCH) 28.8 pg 27.0-31.0 [facility] [id number] 20:31:0086.6[facility]annHEMATOLOGY 2017-03-02 20:31:006.2[facility] AmvqvxcPENMQRUHNX5837-00-65 20:31:004.87[facility] MkcjmxdQVSTNBZMTG4010-70-02 20:31:0014.0[facility] QbhpjprDFSXRGMFGH4506-70-20 20:31:0042.2[facility] ZexpteiZCLCRDBSEF3358-54-54 20:31:0027.7[facility] [id number] 20:31:0059.9[facility] WsqsnvyRZBEGMSZHI2152-55-45 20:31:00 0.3[facility] VyetrlvSBRDUSBRUF3125-34-95 20:31:002.9[facility]annHEMATOLOGY 2017-03-02 20:31:009.2[facility] UmfnghuYDTXEFQFSR0001-61-88 20:31:000.2[facility] ZfocjzhQFTDFTGZFE0701-48-63 20:31:003.7[facility] OvebniyVWZYHMVTHB4380-99-39 20:31:000.6[facility] IihyfbvVLDPFQECMI9364-51-89 20:31:001.7[facility]
--- OUTSIDE RECORDS SUMMARY | 2019-10-29 13:50 | XMS REPORT | Summary of Care ---
Author Author [facility] Address Unknown Phone Unavailable Encounter RALEIGH Ramos(DEE) [id number] Date(s): 03/06/17 - 03/06/[address] [facility] [address] [place] [address]- Discharge Disposition: Home or Self Care Attending Physician: Thor Osei MD Referring Physician: Thor Osei MD Vital Signs 1 2 3 Most recent to oldest [Reference Range]: 175.26 cm (03/02/17 2:57 PM) Height 98.3 DegF (03/02/17 2:57 PM) Temperature Oral [96.4-99.1 DegF] 130/70 mmHg (03/06/17 1:15 PM) 118/53 mmHg (03/06/17 11:00 AM) 120/78 mmHg (03/06/17 10:45 AM) Blood Pressure [90-140/60-90 mmHg] 12 BRMIN *LOW* (03/06/17 11:00 AM) 12 BRMIN *LOW* (03/06/17 10:45 AM) 14 BRMIN (03/06/17 10:30 AM) Respiratory Rate [14-20 BRMIN] 100 bpm (03/06/17 7:19 AM) 59 bpm *LOW* (03/02/17 2:57 PM) Peripheral Pulse Rate [60-100 bpm] 88.892 kg (03/02/17 2:57 PM) Weight 28.94 m2 (03/02/17 2:57 PM) Body Mass Index Problem List Condition Effective Dates Status Health Status Informan t Anginal Active pain(Confirmed) Atrial Active fibrillation(Confirm ed) CAD (coronary artery Active disease)(Confirmed) Diabetes(Confirmed) Active Acid Active reflux(Confirmed) Inguinal Active hernia(Confirmed) Anxiety and Active depression(Confirmed ) Allergies, Adverse Reactions, Alerts Substance Reaction Severity Status NKDA Active Medications acetaminophen (ANES) Route: IV, Drug form: INJ, ONCE, Stop date: 03/06/17 10:01:00 CDT Start Date: 03/06/17 Stop Date: 03/06/17 Status: Completed acetaminophen-hydrocodone 325 mg-10 mg oral tablet 1 tab, Route: PO, Dosing Weight 88.892, kg, Q4H, PRN Pain Score 4-6, Start date: 03/06/17 10:08:00 CDT, Duration: 30 day, Stop date: 04/05/17 10:07:00 [facility] [employer] Start Date: 03/06/17 Stop Date: 03/06/17 Status: Discontinued acetaminophen-hydrocodone 325 mg-10 mg oral tablet 1 tab, PO, Q4H, PRN Pain Score 4-6, 0 Refill(s) Start Date: 03/06/17 Status: Ordered acetaminophen-hydrocodone 325 mg-5 mg oral tablet 1 tab, Route: PO, Dosing Weight 88.892, kg, Q4H, PRN Pain Score 4-6, Start date: 03/06/17 10:08:00 CDT, Duration: 30 day, Stop date: 04/05/17 10:07:00 [facility] [employer] [employer] Start Date: 03/06/17 Stop Date: 03/06/17 Status: Discontinued AMIODarone 200 mg oral tablet See Instructions, 0.5 tab in the AM and 0.5 tab in the PM, 0 Refill(s) Start Date: 03/02/17 Status: Ordered ANES fentaNYL 25 microgram, Route: IVP, Q5Min, Dosing Weight 88.892, kg, PRN Pain Score 4-6, P riority: Routine, Start date: 03/06/17 10:20:00 CDT, Duration: 4 doses or times, Stop date: Limited # of times Start Date: 03/06/17 Stop Date: 03/06/17 Status: Discontinued ANES flumazenil 0.2 mg, Route: IVP, PRN, Dosing Weight 88.892, kg, PRN Benzodiazepine Reversal, Initial dose, Start date: 03/06/17 10:20:00 CDT, Duration: 30 day, Stop date: 9:19:00 [facility] [employer] [facility] Start Date: 03/06/17 Stop Date: 03/06/17 Status: Discontinued ANES HYDROmorphone 0.5 mg, Route: IVP, Q5Min, Dosing Weight 88.892, kg, PRN Pain Score 7-10, Start date: 03/06/17 10:20:00 CDT, Duration: 4 doses or times, Stop date: Limited # of times Start Date: 03/06/17 Stop Date: 03/06/17 Status: Discontinued ANES naloxone 0.4 mg, Route: IVP, Q2MIN, Dosing Weight 88.892, kg, PRN Narcotic Reversal, Star t date: 03/06/17 10:20:00 CDT, Duration: 8 doses or times, Stop date: Limited # of times Start Date: 03/06/17 Stop Date: 03/06/17 Status: Discontinued ANES ondansetron 4 mg, Route: IVP, ONCE, Dosing Weight 88.892, kg, PRN Nausea & Vomiting, Start date: 03/06/17 10:20:00 CDT Start Date: 03/06/17 Stop Date: 03/06/17 Status: Discontinued ANES promethazine 6.25 mg, Route: IVPB, ONCE, Dosing Weight 88.892, kg, PRN Nausea & Vomiting, Start date: 03/06/17 10:20:00 CDT Start Date: 03/06/17 Stop Date: 03/06/17 Status: Discontinued ceFAZolin (ANES) Route: IV, Drug form: INJ, ONCE, Stop date: 03/06/17 8:46:00 CDT Start Date: 03/06/17 Stop Date: 03/06/17 Status: Completed escitalopram 10 mg oral tablet 10 mg = 1 tab, PO, Daily, # 30 tab, 0 Refill(s) Start Date: 03/02/17 Status: Ordered fentaNYL (ANES) Route: IV, Drug form: INJ, ONCE, Stop date: 03/06/17 8:36:00 CDT Start Date: 03/06/17 Stop Date: 03/06/17 Status: Completed furosemide 40 mg oral tablet 40 mg = 1 tab, PO, Daily, # 30 tab, 0 Refill(s) Start Date: 03/02/17 Status: Ordered glimepiride 4 mg oral tablet 4 mg = 1 tab, PO, Breakfast, # 30 tab, 0 Refill(s) Start Date: 03/02/17 Status: Ordered glycopyrrolate (ANES) Route: IV, Drug form: INJ, ONCE, Stop date: 03/06/17 10:07:00 CDT Start Date: 03/06/17 Stop Date: 03/06/17 Status: Completed hydromorphone 0.3 mg, Route: IVP, Q3H, Dosing Weight 88.892, kg, PRN Pain Score 4-6, Start rosenda e: 03/06/17 10:08:00 CDT, Duration: 30 day, Stop date: 04/05/17 10:07:00 [facility] [employer] [facility] Start Date: 03/06/17 Stop Date: 03/06/17 Status: Discontinued isosorbide mononitrate 30 mg oral tablet, extended release 30 mg = 1 tab, PO, QAM, # 30 tab, 0 Refill(s) Start Date: 03/02/17 Status: Ordered Lactated Ringers 1,000 mL 1,000 mL, Rate: 25 ml/hr, Infuse over: 40 hr, Route: IV, Dosing Weight 88.892 kg , Total Volume: 1,000, Start date: 03/06/17 7:18:00 CDT, Duration: 1 day, Stop d ate: 03/07/17 7:17:00 CDT Start Date: 03/06/17 Stop Date: 03/06/17 Status: Discontinued levothyroxine 50 mcg (0.05 mg) oral tablet 50 microgram = 1 tab, PO, Daily, # 30 tab, 0 Refill(s) Start Date: 03/02/17 Status: Ordered lidocaine (ANES) Route: IV, Drug form: INJ, ONCE, Stop date: 03/06/17 8:36:00 CDT Start Date: 03/06/17 Stop Date: 03/06/17 Status: Completed LR 1000 mL INJ (ANES) Route: IV, Total Volume: 1,000, Start date: 03/06/17 7:30:00 CDT, Stop date: 8:30:00 CDT Start Date: 03/06/17 Stop Date: 03/06/17 Status: Completed metoprolol 100 mg oral tablet, extended release 100 mg = 1 tab, PO, Daily, # 30 tab, 0 Refill(s) Start Date: 03/02/17 Status: Ordered neostigmine (ANES) Route: IV, Drug form: INJ, ONCE, Stop date: 03/06/17 10:07:00 CDT Start Date: 03/06/17 Stop Date: 03/06/17 Status: Completed ondansetron (ANES) Route: IV, Drug form: INJ, ONCE, Stop date: 03/06/17 10:07:00 CDT Start Date: 03/06/17 Stop Date: 03/06/17 Status: Completed oxyCODONE 5 mg oral tablet 5 mg, Route: PO, Drug form: TAB, ONCE, Dosing Weight 88.892, kg, PRN Pain Score 4-6, Start date: 03/06/17 11:20:00 CDT Start Date: 03/06/17 Stop Date: 03/06/17 Status: Completed oxyCODONE 5 mg oral tablet 5 mg, Route: PO, Drug form: TAB, ONCE, Dosing Weight 88.892, kg, PRN Pain Score 4-6, Start date: 03/06/17 12:14:00 CDT Start Date: 03/06/17 Stop Date: 03/06/17 Status: Completed pantoprazole 40 mg oral enteric coated tablet 40 mg = 1 tab, PO, Daily, # 30 tab, 0 Refill(s) Start Date: 03/02/17 Status: Ordered phenylephrine (ANES) Route: IV, Drug form: INJ, ONCE, Stop date: 03/06/17 8:26:00 CDT Start Date: 03/06/17 Stop Date: 03/06/17 Status: Completed propofol (ANES) Route: IV, Drug form: INJ, ONCE, Stop date: 03/06/17 8:36:00 CDT Start Date: 03/06/17 Stop Date: 03/06/17 Status: Completed rocuronium (ANES) Route: IV, Drug form: INJ, ONCE, Stop date: 03/06/17 8:36:00 CDT Start Date: 03/06/17 Stop Date: 03/06/17 Status: Completed scopolamine 1.5 mg transdermal film 1 patch, Route: TOP, Drug Form: ERFILM, Dosing Weight 88.892, kg, ONCE, Start da te: 03/06/17 7:41:00 CDT, Stop date: 03/06/17 7:41:00 CDT Start Date: 03/06/17 Stop Date: 03/06/17 Status: Completed Xarelto 20 mg oral tablet 20 mg = 1 tab, PO, QPM, # 30 tab, 3 Refill(s) Start Date: 03/02/17 Stop Date: 03/06/17 Status: Discontinued Results ELECTROLYTES Most recent to 1 oldest [Reference Range]: Sodium Lvl [135-145 142 mEq/L mEq/L] (03/02/17 3:31 PM) Potassium Lvl 4.2 mEq/L [3.5-5.1 mEq/L] (03/02/17 3:31 PM) Chloride Lvl [95-109 103 mEq/L mEq/L] (03/02/17 3:31 PM) CO2 [24-32 mEq/L] 28 mEq/L (03/02/17 3:31 PM) AGAP [10.0-20.0 15.2 mEq/L mEq/L] (03/02/17 3:31 PM) CHEM PANEL Most recent to 1 oldest [Reference Range]: Creatinine Lvl 1.50 mg/dL [0.50-1.40 mg/dL] *HI* (03/02/17 3:31 PM) eGFR 47 mL/min/1.73m2 1 *NA* (03/02/17 3:31 PM) BUN [7-22 mg/dL] 13 mg/dL (03/02/17 3:31 PM) B/C Ratio [6-25] 9 (03/02/17 3:31 PM) Glucose Lvl [70-99 143 mg/dL mg/dL] *HI* (03/02/17 3:31 PM) Total Protein 8.0 g/dL [6.4-8.4 g/dL] (03/02/17 3:31 PM) Albumin Lvl [3.5-5.0 3.8 g/dL g/dL] (03/02/17 3:31 PM) Globulin [2.7-4.2 4.2 g/dL g/dL] (03/02/17 3:31 PM) A/G Ratio [0.7-1.6] 0.9 (03/02/17 3:31 PM) Calcium Lvl 9.2 mg/dL [8.5-10.5 mg/dL] (03/02/17 3:31 PM) ALT [0-65 unit/L] 67 unit/L *HI* (03/02/17 3:31 PM) AST [0-37 unit/L] 48 unit/L *HI* (03/02/17 3:31 PM) Alk Phos [39-136 116 unit/L unit/L] (03/02/17 3:31 PM) Bili Total [0.2-1.3 0.7 mg/dL mg/dL] (03/02/17 3:31 PM) 1Result Comment: The eGFR is calculated using the [...] from the National Kid[employer] Education Program ( NKDEP) which additionally recommends that when the eGFR is used in patients with extremes of body mass index for purposes of drug dosing, the eGFR should be mul tiplied by the estimated BMI. HEMATOLOGY Most recent to 1 oldest [Reference Range]: WBC [3.7-10.4 K/CMM] 6.2 K/CMM (03/02/17 3:31 PM) RBC [4.70-6.10 4.87 M/CMM M/CMM] (03/02/17 3:31 PM) Hgb [14.0-18.0 g/dL] 14.0 g/dL (03/02/17 3:31 PM) Hct [42.0-54.0 %] 42.2 % (03/02/17 3:31 PM) MCV [80.0-94.0 fL] 86.6 fL (03/02/17 3:31 PM) MCH [27.0-31.0 pg] 28.8 pg (03/02/17 3:31 PM) MCHC [32.0-36.0 33.2 g/dL g/dL] (03/02/17 3:31 PM) RDW [11.5-14.5 %] 14.8 % *HI* (03/02/17 3:31 PM) Platelet [133-450 191 K/CMM K/CMM] (03/02/17 3:31 PM) MPV [7.4-10.4 fL] 8.7 fL (03/02/17 3:31 PM) Segs [45.0-75.0 %] 59.9 % (03/02/17 3:31 PM) Lymphocytes 27.7 % [20.0-40.0 %] (03/02/17 3:31 PM) Monocytes [2.0-12.0 9.2 % %] (03/02/17 3:31 PM) Eosinophils [0.0-4.0 2.9 % %] (03/02/17 3:31 PM) Basophils [0.0-1.0 0.3 % %] (03/02/17 3:31 PM) Segs-Bands # 3.7 K/CMM [1.5-8.1 K/CMM] (03/02/17 3:31 PM) Lymphocytes # 1.7 K/CMM [1.0-5.5 K/CMM] (03/02/17 3:31 PM) Monocytes # [0.0-0.8 0.6 K/CMM K/CMM] (03/02/17 3:31 PM) Eosinophils # 0.2 K/CMM [0.0-0.5 K/CMM] (03/02/17 3:31 PM) Immunizations No data available for this section Procedures Procedure Date Related Diagnosis Body Site BA - Barium enema Biopsy of lymph node CABG x 2 - Coronary artery bypass graft s x 2 Colonoscopy Social History Social History Type Response Substance Abuse Use: None. Alcohol Past, Previous treatment: N one. Smoking Status Former smoker; Exposure to Tobacco Smoke None; Cigarette Smoking Last 365 Days No; Reg Smoking Cessation Counseli ng No Assessment and Plan No data available for this section
[2019-10-29] MEDS ORDERED: SODIUM CHLORIDE 0.9% 1000ML 1,000 ML IV STA (14:01)
[2019-10-29] MEDS ORDERED: SODIUM CHLORIDE 0.9% 250ML 250 ML IV ONE (14:15)
[2019-10-29] MEDS ORDERED: PANTOPRAZOLE 40 MG 10ML VIAL IV ONE (14:30)
[2019-10-29 14:43] LABS: BASOPHILS % 0.2 % (0.0-1.0); EOSINOPHILS # (AUTO) 0.1 (0.0-0.4); EOSINOPHILS % 2.1 % (0.0-6.0); LYMPHOCYTES # (AUTO) 1.7 (1.0-3.2); LYMPHOCYTES % 33.5 % (18.0-39.1); MEAN CORPUSCULAR HEMOGLOBIN 15.4 pg (28-32); MEAN CORPUSCULAR HGB CONC 22.4 g/dL (31-35); MEAN CORPUSCULAR VOLUME 68.8 fL (81-99); MONOCYTES # (AUTO) 0.4 (0.2-0.8); MONOCYTES % 8.3 % (4.4-11.3); NEUTROPHILS # (AUTO) 2.9 (2.1-6.9); NEUTROPHILS % 55.5 % (38.7-80.0); PLATELET COUNT 248 x10e3/uL (140-360); RED BLOOD COUNT 2.47 x10e6/uL (4.3-5.7)
[2019-10-29 14:47] LABS: HEMOGLOBIN 3.8 g/dL (14.0-18.0)
[2019-10-29 14:50] LABS: INR 3.35; PROTHROMBIN TIME 36.6 seconds (11.9-14.5)
[2019-10-29 14:51] LABS: PARTIAL THROMBOPLASTIN TIME 49.7 seconds (23.8-35.5)
[2019-10-29 14:57] LABS: ALBUMIN 3.4 g/dL (3.5-5.0); ANION GAP 14.5 mmol/L (8-16); CALCIUM 8.8 mg/dL (8.4-10.2); CREATININE, SERUM 1.58 mg/dL (0.72-1.25); POTASSIUM 3.5 mmol/L (3.5-5.1)
[2019-10-29 14:58] LABS: ALBUMIN/GLOBULIN RATIO 0.9 (0.8-2.0)
--- NOTE | 2019-10-29 15:01 | Diagnostic Imaging Report ---
EXAMINATION: CHEST SINGLE (PORTABLE) INDICATION: GI bleed COMPARISON: None FINDINGS: LINES/TUBES:Left chest pacer. EKG leads overlie the chest. LUNGS:The right lung is well-inflated. Left lung volume is relatively low. Patchy left lower lung opacities. PLEURA:Likely small left pleural effusion. No pneumothorax. MEDIASTINUM:The cardiomediastinal silhouette appears normal in size and shape. Postoperative findings of prior CABG. BONES/SOFT TISSUES:No acute osseous injury. Anatomy wires in place. ABDOMEN:No free air under the diaphragm. IMPRESSION: Likely small left pleural effusion. Left lower lung patchy opacities, most likely subsegmental atelectasis. Signed by: Anai Encarnacion MD on 10/29/2019 2:57 PM
[2019-10-29 15:04] LABS: CREATINE KINASE MB 0.7 ng/mL (0-5.0)
[2019-10-29] MEDS ORDERED: OCTREOTIDE ACETATE 0.05 MG/ML AMP IV STA (15:12)
[2019-10-29] MEDS ORDERED: PHYTONADIONE 10 MG/ML AMP SC ONE (15:45)
--- OUTSIDE RECORDS SUMMARY | 2019-10-29 15:51 | XMS REPORT | Continuity of Care Document ---
Author Author Latesha Naldo [employer]RAVIND [employer] Information [employer] Address Unknown Phone Unavailable Care Team Providers Care Dining Room Attendant Name Role Phone [employer] Information Exchange Unavailable Un available Problems Problem Status Onset Date Classification Date Reported Comments Source UNK Active 1 [facility] Angina (disorder) Active Problem 03/09/2017 [facility] Atrial fibrillation (disorder) Active Problem [facility] Coronary arteriosclerosis (disorder) Active Problem [facility] Diabetes mellitus (disorder) A ctive Problem [facility] Gastroesophageal reflux disease (disorder) Active Problem 03/09/2017 [facility] Inguinal hernia (disorder) Act arnold Problem [facility] Mixed anxiety and depressive disorder (disorder) Active Problem 03/09/2017 [facility] Medications Medication Details Route Status Patient Instructions Ordering Provider Order Date Source Oxycodone Hydrochloride 5 MG Oral Tablet 5 mg, Route: PO, Drug form: TAB, ONCE, Dosing Weight 88.892, kg, PRN Pain Score 4-6, Start date: 03/06/17 12:14:00 CDT Inactive 03/06/2017 [facility] Oxycodone Hydrochloride 5 MG Oral Tablet 5 mg, Route: PO, Drug form: TAB, ONCE, Dosing Weight 88.892, kg, PRN Pain Score 4-6, Start date: 03/06/17 11:20:00 CDT Inactive 03/06/2017 [facility] Hydromorphone 0.5 mg, Route: I [employer], Q5Min, Dosing Weight 88.892, kg, PRN Pain Score 7-10, Start date: 03/06/17 10:20:00 CDT, Duration: 4 doses or times, Stop date: Limited # of times Inactive 03/06/2017 [facility] Fentanyl 25 microgram, Route: IVP, Q5Min, Dosing Weight 88.892, kg, PRN Pain Score 4-6, Priority: Routine, Start date: 03/06/17 10:20:00 CDT, Duration: 4 doses or times, Stop date: Limited # of times Inactive 03/06/2017 [facility] Naloxone 0.4 mg, Route: IVP, Q 2MIN, Dosing Weight 88.892, kg, PRN Narcotic Reversal, Start date: 03/06/17 10:20:00 CDT, Duration: 8 doses or times, Stop date: Limited # of times Inactive 03/06/2017 [facility] Flumazenil 0.2 mg, Route: IVP, PRN, Dosing Weight 88.892, kg, PRN Benzodiazepine Reversal, Initial dose, Start date: 03/06/17 10:20:00 CDT, Duration: 30 day, Stop date: 04/05/17 9:19:00 [employer] Inactive 03/06/2017 [facility] Ondansetron 4 mg, Route: IVP, ONCE, Dosing Weight 88.892, kg, PRN Nausea & Vomiting, Start date: 03/06/17 10:20:00 CDT Inactive 03/06/2017 [facility] Promethazine 6.25 mg, Route: I VPB, ONCE, Dosing Weight 88.892, kg, PRN Nausea & Vomiting, Start date: 03/06/17 10:20:00 CDT Inactive 03/06/2017 [facility] Acetaminophen 325 MG / Hydrocodone Narinder trate 10 MG Oral Tablet 1 tab, PO, Q4H, PRN Pain Score 4-6, 0 Refill(s) Active 03/06/2017 [facility] Acetaminophen 325 MG / Hydrocodone Narinder trate 10 MG Oral Tablet 1 tab, Route: PO, Dosing Weight 88.892, kg, Q4H, PRN Pain Score 4-6, Start date: 03/06/17 10:08:00 CDT, Duration: 30 day, Stop date: 04/05/17 10:07:00 [employer] ASSOCIATE Inactive 03/06/2017 [facility] Acetaminophen 325 MG / Hydrocodone Narinder trate 5 MG Oral Tablet 1 tab, Route: PO, Dosing Weight 88.892, kg, Q4H, PRN Pain Score 4-6, Start date: 03/06/17 10:08:00 CDT, Duration: 30 day, Stop date: 04/05/17 10:07:00 [employer] ASSOCIATE Inactive 03/06/2017 [facility] Hydromorphone 0.3 mg, Route: I [employer], Q3H, Dosing Weight 88.892, kg, PRN Pain Score 4-6, Start date: 03/06/17 10:08:00 CDT, Duration: 30 day, Stop date: 04/05/17 10:07:00 [employer] ASSOCIATE Inactive 03/06/2017 [facility] glycopyrrolate (ANES) Route: I V, Drug form: INJ, ONCE, Stop date: 03/06/17 10:07:00 CDT Inactive 03/06/2017 [facility] neostigmine (ANES) Route: IV, Drug form: INJ, ONCE, Stop date: 03/06/17 10:07:00 CDT Inactive 03/06/2017 [facility] ondansetron (ANES) Route: IV, Drug form: INJ, ONCE, Stop date: 03/06/17 10:07:00 CDT Inactive 03/06/2017 [facility] acetaminophen (ANES) Route: IV , Drug form: INJ, ONCE, Stop date: 03/06/17 10:01:00 CDT Inactive 03/06/2017 [facility] ceFAZolin (ANES) Route: IV, Dr ug form: INJ, ONCE, Stop date: 03/06/17 8:46:00 CDT Inactive 03/06/2017 [facility] propofol (ANES) Route: IV, Aries g form: INJ, ONCE, Stop date: 03/06/17 8:36:00 CDT Inactive 03/06/2017 [facility] fentaNYL (ANES) Route: IV, Aries g form: INJ, ONCE, Stop date: 03/06/17 8:36:00 CDT Inactive 03/06/2017 [facility] lidocaine (ANES) Route: IV, Dr ug form: INJ, ONCE, Stop date: 03/06/17 8:36:00 CDT Inactive 03/06/2017 [facility] rocuronium (ANES) Route: IV, D rug form: INJ, ONCE, Stop date: 03/06/17 8:36:00 CDT Inactive 03/06/2017 [facility] phenylephrine (ANES) Route: IV , Drug form: INJ, ONCE, Stop date: 03/06/17 8:26:00 CDT Inactive 03/06/2017 [facility] 72 HR Scopolamine 0.0139 MG/HR Transdermal Patch 1 patch, Route: TOP, Drug Form: ERFILM, Dosing Weight 88.892, kg, ONCE, Start date: 03/06/17 7:41:00 CDT, Stop date: 03/06/17 7:41:00 CDT Inactive 03/06/2017 [facility] LR 1000 mL INJ (ANES) Route: I V, Total Volume: 1,000, Start date: 03/06/17 7:30:00 CDT, Stop date: 03/06/17 8:30:00 CDT Inactive 03/06/2017 [facility] Calcium Chloride 0.0014 MEQ/ML / Potassi um Chloride 0.004 MEQ/ML / Sodium Chloride 0.103 MEQ/ML / Sodium Lactate 0.028 MEQ/ML Injectable Solution 1,000 mL, Rate: 25 ml/hr, Infuse over: 4 0 hr, Route: IV, Dosing Weight 88.892 kg, Total Volume: 1,000, Start date: 03/06/17 7:18:00 CDT, Duration: 1 day, Stop date: 03/07/17 7:17:00 CDT Inactive 03/06/2017 [facility] glimepiride 4 mg oral tablet 4 mg = 1 tab, PO, Breakfast, # 30 tab, 0 Refill(s) Active 03/02/2017 [facility] Furosemide 40 MG Oral Tablet 4 0 mg = 1 tab, PO, Daily, # 30 tab, 0 Refill(s) Active 03/02/2017 [facility] AMIODarone 200 mg oral tablet See Instructions, 0.5 tab in the AM and 0.5 tab in the PM, 0 Refill(s) Active 03/02/2017 [facility] rivaroxaban 20 MG Oral Tablet [Xarelto] 20 mg = 1 tab, PO, QPM, # 30 tab, 3 Refill(s) No Longer Active 03/02/2017 [facility] metoprolol 100 mg oral tablet, extended release 100 mg = 1 tab, PO, Daily, # 30 tab, 0 Refill(s) Active 03/02/2017 [facility] escitalopram 10 mg oral tablet 10 mg = 1 tab, PO, Daily, # 30 tab, 0 Refill(s) Active 03/02/2017 [facility] isosorbide mononitrate 30 mg oral tablet , extended release 30 mg = 1 tab, PO, QAM, # 30 tab, 0 Refill(s) Active 03/02/2017 [facility] pantoprazole 40 mg oral enteric coated tablet 40 mg = 1 tab, PO, Daily, # 30 tab, 0 Refill(s) Active 03/02/2017 [facility] levothyroxine 50 mcg (0.05 mg) oral tablet 50 microgram = 1 tab, PO, Daily, # 30 tab, 0 Refill(s) Active 03/02/2017 [facility] Allergies, Adverse Reactions, Alerts No Known Medication Allergies Immunizations No Data Provided for This Section Results Order Name Results Value Reference Range Date Interpretation Comments Source CHEM PANEL Globulin 4.2 2.7 - 4.2 03/02/2017 [facility] CHEM PANEL B/C Ratio 9 6 - 25 03/02/2017 [facility] CHEM PANEL AGAP 15.2 10.0 - 20.0 03/02/2017 [facility] CHEM PANEL A/G Ratio 0.9 0.7 - 1.6 03/02/2017 [facility] CHEM PANEL eGFR 47 03/02/2017 Result Comment: [...] should be multiplied by the estimated BMI. [facility] CHEM PANEL Potassium Lvl 4.2 3.5 - 5.1 03/02/2017 [facility] CHEM PANEL Chloride Lvl 103 95 - 109 03/02/2017 [facility] CHEM PANEL Sodium Lvl 142 135 - 145 03/02/2017 [facility] CHEM PANEL Calcium Lvl 9.2 8.5 - 10.5 03/02/2017 [facility] CHEM PANEL Total Protein 8.0 6.4 - 8.4 03/02/2017 [facility] CHEM PANEL CO2 28 24 - 32 03/02/2017 [facility] CHEM PANEL Albumin Lvl 3.8 3.5 - 5.0 03/02/2017 [facility] CHEM PANEL ALT 67 0 - 65 03/02/2017 [facility] CHEM PANEL AST 48 0 - 37 03/02/2017 [facility] CHEM PANEL Alk Phos 116 39 - 136 03/02/2017 [facility] CHEM PANEL Bili Total 0.7 0.2 - 1.3 03/02/2017 [facility] CHEM PANEL Creatinine Lvl 1.50 0.50 - 1.40 03/02/2017 [facility] CHEM PANEL BUN 13 7 - 22 03/02/2017 [facility] CHEM PANEL Glucose Lvl 143 70 - 99 03/02/2017 [facility] HEMATOLOGY RDW 14.8 11.5 - 14.5 03/02/2017 [facility] HEMATOLOGY MPV 8.7 7.4 - 10.4 03/02/2017 [facility] HEMATOLOGY Platelet 191 133 - 450 03/02/2017 [facility] HEMATOLOGY MCHC 33.2 32.0 - 36.0 03/02/2017 [facility] HEMATOLOGY MCH 28.8 27.0 - 31.0 03/02/2017 [facility] HEMATOLOGY MCV 86.6 80.0 - 94.0 03/02/2017 [facility] HEMATOLOGY WBC 6.2 3.7 - 10.4 03/02/2017 [facility] HEMATOLOGY RBC 4.87 4.70 - 6.10 03/02/2017 [facility] HEMATOLOGY Hgb 14.0 14.0 - 18.0 03/02/2017 [facility] HEMATOLOGY Hct 42.2 42.0 - 54.0 03/02/2017 [facility] HEMATOLOGY Lymphocytes 27.7 20.0 - 40.0 03/02/2017 [facility] HEMATOLOGY Segs 59.9 45.0 - 75.0 03/02/2017 [facility] HEMATOLOGY Basophils 0.3 0.0 - 1.0 03/02/2017 [facility] HEMATOLOGY Eosinophils 2.9 0.0 - 4.0 03/02/2017 [facility] HEMATOLOGY Monocytes 9.2 2.0 - 12.0 03/02/2017 [facility] HEMATOLOGY Eosinophils # 0.2 0.0 - 0.5 03/02/2017 [facility] HEMATOLOGY Segs-Bands # 3.7 1.5 - 8.1 03/02/2017 [facility] HEMATOLOGY Monocytes # 0.6 0.0 - 0.8 03/02/2017 [facility] HEMATOLOGY Lymphocytes # 1.7 1.0 - 5.5 03/02/2017 [facility] Pathology Reports No Data Provided for This Section Diagnostic Reports No Data Provided for This Section Consultation Notes No Data Provided for This Section Discharge Summaries No Data Provided for This Section History and Physicals No Data Provided for This Section Vital Signs Vital Sign Value Date Comments Source Systolic (mm Hg) 130 03/06/2017 [facility] Diastolic (mm Hg) 70 03/06/2017 [facility] Systolic (mm Hg) 118 03/06/2017 [facility] Diastolic (mm Hg) 53 03/06/2017 [facility] Respitory Rate 12 03/06/2017 [facility] Systolic (mm Hg) 120 03/06/2017 [facility] Diastolic (mm Hg) 78 03/06/2017 [facility] Respitory Rate 12 03/06/2017 [facility] Respitory Rate 14 03/06/2017 [facility] Heart Rate 100 03/06/2017 [facility] Temperature Oral (F) 98.3 F 03/02/2017 [facility] Heart Rate 59 03/02/2017 [facility] Weight 88.892 03/02/2017 [facility] BMI Calculated 28.94 03/02/2017 [facility] Height 175.26 cm 03/02/2017 [facility] Encounters Location Location Details Encounter Type Encounter Number Reason For Visit Attending Provider ADM Date DC Date Status Source [facility] [id number] Thor Osei 03/06/2017 03/06/2017 [facility] Procedures Procedure Code Date Perfomer Comments Source BA - Barium enema [id number] [facility] Biopsy of lymph node [id number] [facility] CABG x 2 - Coronary artery bypass grafts x 2 [id number] [facility] Colonoscopy [id number] [facility] st Assessment and Plan No Data Provided for This Section Plan of Care No Data Provided for This Section Social History Social History Date Source Social History TypeResponse Substance Abuse Use: None. Alcohol Past, Previous treatment: None. Smoking Status Former smoker; Exposure to Tobacco Smoke None; Cigarette Smoking Last 365 Days No; Reg Smoking Cessation Counseling No 03/02/2017 [facility] Family History No Data Provided for This Section Advance Directives No Data Provided for This Section Functional Status No Data Provided for This Section
--- OUTSIDE RECORDS SUMMARY | 2019-10-29 15:51 | XMS REPORT | Continuity of Care Document ---
Author Author [facility] t Organization [facility] Address [address] [place] [address] Phone Unavailable Care Team Providers Care Neurosurgery Spine Physician Name Role Phone Ankit DE LOS SANTOS Attphys Unavailable SHAQ MARISCAL Attphys Unavailable Brayden Osei Attphys Payers Payer Name Policy Type Policy Number Effective Date Expiration Date S ource Problems Condition Name Condition Details Condition Category Status Onset Date Resolution Date Last Treatment Date Treating Clinician Comments Source [place] Active 02/27/2017 [facility] Diagnosis Active 2017-02-27 00:00:00 2017-03-06 10:37:00 Luis Hitchcock Angina (disorder) Ermelinda na (disorder) Active Problem 03/09/2017 [facility] Problem Active 2017-03-09 01:10:28 Latesha Hitchcock Atrial fibrillation (disorder) Atrial fibrillation (disorder) Active Problem 03/09/2017 [facility] Problem Active 2017-03-09 01:10:28 Latesha Htichcock Coronary arteriosclerosis (disorder) Coronary arteriosclerosis (disorder) Active Problem 03/09/2017 [facility] Problem Active 2017-03-09 01:10:28 Latesha Hitchcock Diabetes mellitus (disorder) D iabetes mellitus (disorder) Active Problem 03/09/2017 [facility] Problem Active 2017-03-09 01:10:28 [facility] Gastroesophageal reflux disease (disorder) Gastroesophageal reflux disease (disorder) Active Problem 03/09/2017 [facility] Problem Active 2017-03-09 01:10:28 [facility] Inguinal hernia (disorder) Ing uinal hernia (disorder) Active Problem 03/09/2017 [facility] Problem Active 2017-03-09 01:10:28 [facility] Mixed anxiety and depressive disorder (disorder) Mixed anxiety and depressive disorder (disorder) Active Problem 03/09/2017 [facility] Problem Active 2017-03-09 01:10:28 [facility] Allergies, Adverse Reactions, Alerts Allergy Name Allergy Type Status Severity Reaction(s) Onset Date Inacti ve Date Treating Clinician Comments Source No Known Allergies DA Active U 2017-02-21 00:00:00 [facility] Social History Social Habit Start Date Stop Date Quantity Comments Source Social History 2017-03-02 19:53:32 2017-03-02 19:53:32 [facility] Medications Ordered Medication Name Filled Medication Name Start Date Stop Da te Current Medication? Ordering Clinician Indication Dosage Frequency Signature (SIG) Comments Components Source Oxycodone Hydrochloride 5 MG Oral Tablet 2017-03-06 17:14:00 No 5 mg, Route: PO, Drug form: TAB, ONCE, Dosing Weight 88.892, kg, PRN Pain Score 4- 6, Start date: 03/06/17 12:14:00 CDT [facility] alec Hitchcock Oxycodone Hydrochloride 5 MG Oral Tablet 2017-03-06 16:20:00 No 5 mg, Route: PO, Drug form: TAB, ONCE, Dosing Weight 88.892, kg, PRN Pain Score 4- 6, Start date: 03/06/17 11:20:00 CDT [facility] Naldo Hydromorphone 2017-03-06 15:20:00 No 0.5 mg, Route: IVP, Q5Min, Dosing Weight 88.892, kg, PRN Pain Score 7-10, Start date: 03/06/17 10:20:00 CDT, Duration: 4 doses or times, Stop date: Limited # of times [facility] Fentanyl 2017-03-06 15:20:00 No 25 microgram, Route: IVP, Q5Min, Dosing Weight 88.892, kg, PRN Pain Score 4-6, Priority: Routine, Start date: 03/06/17 10:20:00 CDT, Duration: 4 doses or times, Stop date: Limited # of times [facility] Naldo Naloxone 2017-03-06 15:20:00 No 0.4 mg, Route: IVP, Q2MIN, Dosing Weight 88.892, kg, PRN Narcotic Reversal, Start date: 03/06/17 10:20:00 CDT, Duration: 8 doses or times, Stop date: Limited # of times [facility] Flumazenil 2017-03-06 15:20:00 No 0.2 mg, Route: IVP, PRN, Dosing Weight 88.892, kg, PRN Benzodiazepine Reversal, Initial dose, Start date: 03/06/17 10:20:00 CDT, Duration: 30 day, Stop date: 04/05/17 9:19:00 [employer] [facility] Ondansetron 2017-03-06 15:20:00 No 4 mg, Route: IVP, ONCE, Dosing Weight 88.892, kg, PRN Nausea & Vomiting, Start date: 03/06/17 10:20:00 CDT [facility] Promethazine 2017-03-06 15:20:00 No 6.25 mg, Route: IVPB, ONCE, Dosing Weight 88.892, kg, PRN Nausea & Vomiting, Start date: 03/06/17 10:20:00 CDT [facility] Acetaminophen 325 MG / Hydrocodone Bitartrate 10 MG Oral Tab let 2017-03-06 15:10:00 Yes 1 tab, PO, Q4H, PRN Pain Scor e 4-6, 0 Refill(s) [facility] Acetaminophen 325 MG / Hydrocodone Bitartrate 10 MG Oral Tab let 2017-03-06 15:08:00 No 1 tab, Rou te: PO, Dosing Weight 88.892, kg, Q4H, PRN Pain Score 4-6, Start date: 03/06/17 10:08:00 CDT, Duration: 30 day, Stop date: 04/05/17 10:07:00 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 [facility] Acetaminophen 325 MG / Hydrocodone Bitartrate 5 MG Oral Tabl et 2017-03-06 15:08:00 No 1 tab, Rou te: PO, Dosing Weight 88.892, kg, Q4H, PRN Pain Score 4-6, Start date: 03/06/17 10:08:00 CDT, Duration: 30 day, Stop date: 04/05/17 10:07:00 [facility] Hydrom[facility]one 2017-03-06 15:08:00 No 0.3 mg, Route: IVP, Q3H, Dosing Weight 88.892, kg, PRN Pain Score 4-6, Start date: 03/06/17 10:08:00 CDT, Duration: 30 day, Stop date: 04/05/17 10:07:00 [facility] glycopyrrolate (ANES) 2017-03-06 15:07:00 No Route: IV, Drug form: INJ, ONCE, Stop date: 03/06/17 10:07:00 CDT [facility] neostigmine (ANES) 2017-03-06 15:07:00 No Route: IV, Drug form: INJ, ONCE, Stop date: 03/06/17 10:07:00 [facility] (ANES[facility] 2017-03-06 15:07:00 No Route: IV, Drug form: INJ, ONCE, Stop date: 03/06/17 10:07:[address] [facility] ([facility]ES[facility] 2017-03-06 15:01:00 No Route: IV, Drug form: INJ, ONCE, Stop date: 03/06/17 10:01:00 CDT [facility] ceFAZolin (GINAS) 2017-03-06 13:46:00 No Route: IV, Drug form: INJ, ONCE, Stop date: 03/06/17 8:46:00 CDT [facility] [place] propofol (ANES) 2017-03-06 13:36:00 No Route: IV, Drug form: INJ, ONCE, Stop date: 03/06/17 8:36:00 [facility] fenta[facility]L (ANES) 2017-03-06 13:36:00 No Route: IV, Drug form: INJ, ONCE, Stop date: 03/06/17 8:36:00 [facility] lid[facility] (ANES) 2017-03-06 13:36:00 No Route: IV, Drug form: INJ, ONCE, Stop date: 03/06/17 8:36:00 CDT [facility] rocuronium (ANES) 2017-03-06 13:36:00 No Route: IV, Drug form: INJ, ONCE, Stop date: 03/06/17 8:36:00 CDT [facility] phenylephrine (ANES) 2017-03-06 13:26:00 No Route: IV, Drug form: INJ, ONCE, Stop date: 03/06/17 8:26:00 CDT Latesha Hitchcock 72 HR Scopolamine 0.0139 MG/HR Transdermal Patch 2017-03-06 12:4 1:00 No 1 patch, Route: TOP, Drug Fo rm: ERFILM, Dosing Weight 88.892, kg, ONCE, Start date: 03/06/17 7:41:00 CDT, Stop date: 03/06/17 7:41:00 CDT Latesha Hitchcock LR 1000 mL INJ [facility] 2017-03-06 12:30:00 No Route: IV, Total Volume: 1,000, Start date: 03/06/17 7:30:00 CDT, Stop date: 03/06/17 8:30:00 CDT [facility] [address] Calcium Chloride 0.0014 MEQ/ML / Potassi um [...] Daily, # 30 tab, 0 [facility] isos[facility]ide mononitrate 30 mg oral tablet, extended [...] Systolic (mm Hg) 2017-03-06 18:15:00 [facility] [place] Diastolic (mm Hg) 2017-03-06 18:15:00 [facility] [place] Systolic (mm Hg) 2017-03-06 16:00:00 [facility] [place] Diastolic (mm Hg) 2017-03-06 16:00:00 [facility] [place] Respitory Rate 2017-03-06 16:00:00 Memori al [place] Systolic (mm Hg) 2017-03-06 15:45:00 [facility] [place] Diastolic (mm Hg) 2017-03-06 15:45:00 [facility] [place] Respitory Rate 2017-03-06 15:45:00 [facility] [place] Respitory Rate 2017-03-06 15:30:00 Mem[facility] al [place] Heart Rate 2017-03-06 12:19:00 [facility] [place] Temperature Oral (F) 2017-03-02 19:57:00 98.3 F [facility] Heart Rate 2017-03-02 19:57:00 [facility] [place] Weight 2017-03-02 19:57:00 [facility] [place] BMI Calculated 2017-03-02 19:57:00 Sumaya simon [place] Height 2017-03-02 19:57:00 175.26 cm [facility] [place] Procedures Procedure Date / Time Performed Performing Clinician Oswald e BA - Barium enema [facility] Fe nn Biopsy of lymph node [facility] rmann CABG x 2 - Coronary artery bypass grafts x 2 [facility] [place] [facility] Encounters Start Date/Time End Date/Time Encounter Type Admission Type [facility] Care Department Encounter ID Source 2017-03-06 05:33:00 2017-03-06 13:39:00 Outpatient Luis Osei [facility] [id number] Results Test Description Test Time Test Comments Results Result Comments Source CHEST SINGLE (PORTABLE) 2019-10-29 14:56:00 [place] [address] Patient Name: ARAVIND MATTHEWS MR #: [id number] : 1950 Age/Sex: 69/M Req #: [id number] Adm Physician: Ordered by: ABEL DE LOS SANTOS MD Report #: [id number] Location: ER Room/Bed: Procedure: [id number] DX/CHEST SINGLE (PORTABLE) Exam Date: 10/29/19 Exam Time: 1430 REPORT STATUS: Signed EXAMINATION: CHEST SINGLE (PORTABLE) INDICATION: GI bleed COMPARISON: None FINDINGS: LINES/TUBES:Left chest pacer. EKG leads overlie the chest. LUNGS:The right lung is well-inflated. Left lung volume is relatively low. Patchy left lower lung opacities. PLEURA:Likely small left pleural effusion. No pneumothorax. MEDIASTINUM:The cardiomediastinal silhouette appears normal in size and shape. Postoperative findings of prior CABG. BONES/SOFT TISSUES:No acute osseous injury. Anatomy wires in place. ABDOMEN:No free air under the diaphragm. IMPRESSION: Likely small left pleural effusion. Left lower lung patchy opacities, most likely subsegmental atelectasis. Signed by: Janelle Galarza MD on 10/29/2019 2:57 PM Dictated By: JANELLE GALARZA MD 56 Transcribed By: LAN on 10/29/191456 COPY TO: ABEL DE LOS SANTOS MD US ABDOMEN COMPLETE 2019-05-05 15:11:00 [place] [address] Patient Name: ARAVIND MATTHEWS MR #: [id number] : 1950 Age/Sex: 68/M Req #: [id number] Adm Physician: Ordered by: SHAQ MARISCAL MD Report #: [id number] Location: CT Room/Bed: Procedure: [id number] US/US ABDOMEN COMPLETE Exam Date: 05/05/19 Exam [...] 3:14 PM Dictated By: JANELLE GALARZA MD 13 Transcribed By: LAN on 05/05/191513 COPY TO: SHAQ MARISCAL MD CT BRAIN WO 2019-05-05 12:09:00 [place] [address] Patient Name: ARAVIND MATTHEWS MR #: [id number] : 1950 Age/Sex: 68/M Req #: [id number] Adm Physician: Ordered by: SHAQ MARISCAL MD Report #: [id number] Location: [place] Room/Bed: Procedure: [id number] CT/CT BRAIN WO Exam Date: 05/05/19 Exam Time: 0815 REPORT STATUS: Signed CT BRAIN WO HISTORY: [...] MARISCAL MD CHEST 2 VIEWS 2019-05-05 09:09:00 [place] [address] Patient Name: ARAVIND MATTHEWS MR #: [id number] : 1950 Age/Sex: 68/M Req #: [id number] Adm Physician: Ordered by: SHAQ MARISCAL MD Report #: [id number] Location: CT Room/Bed: Procedure: [id number] DX/CHEST 2 VIEWS Exam Date: 05/05/19 Exam Time: 0814 REPORT STATUS: Signed EXAMINATION: CHEST 2 VIEWS [...] By: LAN on 05/05/19910 COPY TO: SHAQ MAIRSCAL MD GASTRIC,BIOPSY 2018-07-17 15:20:00 RUN DATE: 07/17/18 [facility] PAGE 1 RUN TIME: 1520 Specimen Inquiry RUN USER: INTERFACE PATIENT: ARAVIND MATTHEWS LOC: [facility] U #: [id number] AGE/SX: 67/M ROOM: RE07/16/18REG DR: Ciro Layne MD : [birth year] BED: DIS: STATUS: [facility] TLOC: SPEC #: [id number] RECD: 07/16/18 STATUS: AZUCENA REMaria Del Carmen #: [id number] SCARLETT: 07/16/[address] [facility] [address]: Ciro Layne MD ENTERED: 07/16/18 SP TYPE: GASTRIC BX OTHR DR: Shaq Mariscal MD ORDERED: GROSS COPIES TO: Ciro Layne MD [address] [place] [address] Shaq Mariscal MD [address] [place] [address] PROCEDURES: GROSS (07/17/18-1209) TISSUES: 1. ANTRUM - BX COLD 2. ESOPHAGUS, NOS - BX COLD CLINICAL HISTORY COLLECTION DATE: 07/16/18 DIARRHEA, DYSPHAGIA FINAL DIAGNOSIS Stomach, antrum, biopsy: CHRONIC ACTIVE GASTRITIS, MILD POSITIVE FOR H. PYLORI ORGANISMS NEGATIVE FOR INTESTINAL METAPLASIA, DYSPLASIA OR MALIGNANCY Esophagus, biopsy: MILD REFLUX ESOPHAGITIS CHRONIC CARDITIS, MILD TO MODERATE NEGATIVE FOR INTESTINAL METAPLASIA, DYSPLASIA OR MALIGNANCY FA/sm D 2) [address], [address] CONTINUED ON NEXT PAGE RUN DATE: 07/17/18 [facility] PAGE 2 RUN TIME: 1520 Specimen Inquiry RUN USER: INTERFACE SPEC #: [id number] PATIENT: ARAVIND MATTHEWS #[id number] (Continued) MACROSCOPIC The first specimen is received [...] cm, submitted as (2). GROSS PERFORMED AT [address] [address] (p)[phone] MICROSCOPIC Sections show gastric mucosa with superficial [...] or malignancy is identified. MICROSCOPIC PERFORMED AT [facility] All of the stains, including any controls performed, stain appropriately. [address] [address] (P)[phone] PERFORMING SITE Diagnosis performed at: [facility], KATE [address] [place] [address] CONTINUED ON NEXT PAGE RUN DATE: 07/17/18 [facility] PAGE 3 RUN TIME: 1520 Specimen Inquiry RUN USER: INTERFACE SPEC #: [id number] PATIENT: CASSIEARAVIND #[id number] (Continued) Signed SIGNATURE ON FILE Ashley Heredia MD 07/17/18 1520 END OF REPORT GLUBED 2018-07-16 10:12:00 Test Item GLUBED (test code = GLUBED) 133 mg/dL 74-106 H Performed by certified plastic machine operator at [facility] SED RATE [id number] 17:16:00* Test Item Value Reference Range Interpretation Comments SED RATE WESTERGREN (test code = SEDW) 28 mm/hr 0-15 H SED [id number] 17:16:00* Test Item Value Reference Range Interpretation Comments SED RATE (test code = SEDW) 28 mm/hr 0-15 H WINTROBE METHOD: NORMAL RANGE FOR MEN: 0-9 MM/HR WOMAN: 0-20 MM/HR CBC W/AUTO [id number] 12:40:00* Test Item Value Reference Range Interpretation [...] = MDIFF) NO, ONLY SCAN NEEDED DIFFERENTIAL [id number] 12:40:00* Test Item Value Reference Range Interpretation Comments STAIN ACCEPTABILITY (test code = STN ACCEPTABLE) STAIN ACCEPTABLE POLYCHROMASIA (test code = POLC) 1+ ANISOCYTOSIS (test code = ANISO) 1+ MICROCYTOSIS (test code = MICR) 1+ MACROCYTOSIS (test code = MACR) 1+ PLATELET ESTIMATE (test code = PLTEST) ADEQUATE PLATELET MORPHOLOGY (test code = PLTMORPH) NORMAL C REACTIVE [id number] 12:33:00* Test Item Value Reference Range Interpretation Comments C REACTIVE PROTEIN (test code = CRP) <0.29 mg/dL 0-0.3 N COMPREHENSIVE METABOLIC [id number] 12:33:00* Test Item Value Reference Range Interpretation [...] due to change in reagent. COMPREHENSIVE METABOLIC [id number] 12:25:00* Test Item Value Reference Range Interpretation [...] code = ALKP) IUnit/L 45-117 CBC W/AUTO [id number] 12:08:00* Test Item Value Reference Range Interpretation [...] = MDIFF) NO, ONLY SCAN NEEDED DIFFERENTIAL [id number] 12:08:00* Test Item Value Reference Range Interpretation Comments STAIN ACCEPTABILITY (test code = STN ACCEPTABLE) CABOT RINGS (test code = CAB) MORPHOLOGY COMMENT (test code = MOC) PLATELET ESTIMATE (test code = PLTEST) PLATELET MORPHOLOGY (test code = PLTMORPH) CBC W/AUTO [id number] 12:08:00* Test Item Value Reference Range Interpretation [...] = MDIFF) NO, ONLY SCAN NEEDED DIFFERENTIAL [id number] 12:08:00* Test Item Value Reference Range Interpretation Comments STAIN ACCEPTABILITY (test code = STN ACCEPTABLE) CABOT RINGS (test code = CAB) MORPHOLOGY COMMENT (test code = MOC) PLATELET ESTIMATE (test code = PLTEST) PLATELET MORPHOLOGY (test code = PLTMORPH) CBC W/AUTO [id number] 12:08:00* Test Item Value Reference Range Interpretation [...] = MDIFF) NO, ONLY SCAN NEEDED DIFFERENTIAL [id number] 12:08:00* Test Item Value Reference Range Interpretation Comments STAIN ACCEPTABILITY (test code = STN ACCEPTABLE) MORPHOLOGY COMMENT (test code = MOC) PLATELET ESTIMATE (test code = PLTEST) PLATELET MORPHOLOGY (test code = PLTMORPH) CBC W/AUTO [id number] 12:08:00* Test Item Value Reference Range Interpretation [...] = MDIFF) NO, ONLY SCAN NEEDED DIFFERENTIAL [id number] 12:08:00* Test Item Value Reference Range Interpretation Comments STAIN ACCEPTABILITY (test code = STN ACCEPTABLE) CABOT RINGS (test code = CAB) MORPHOLOGY COMMENT (test code = MOC) PLATELET ESTIMATE (test code = PLTEST) PLATELET MORPHOLOGY (test code = PLTMORPH) CHEM [id number] 20:31:004.2[facility] [id number] 20:31:009 [facility] [id number] 20:31:0015.2[facility]ann[facility] PANEL 2017-03-02 20:31:000.9[facility]ann[facility] [id number] 20:31:0047[facility]ann[facility] FBELH3229-52-19 20:31:004.2[facility]ann[facility] YAZTZ1136-49-26 20:31:21959Asjwhbyf HermannCHEM OADKQ8873-13-60 20:31:50212Pojdlapn HermannCHEM JGYTN3491-11-96 20:31:009.2[facility]ann[facility] GFFLO3717-72-68 20:31:008.0 [facility] [id number] 20:31:0028[facility]ann[facility] PANEL 2017-03-02 20:31:003.8[facility]ann[facility] RQPCP2257-73-59 20:31:0067[facility]annCHE[facility] RJFCH3230-94-52 20:31:0048[facility]ann[facility] ZMATX6907-04-61 20:31:88572Etsvcgmy HermannCHEM SJMAV4418-32-46 20:31:000.7[facility]annCHE[facility] RFGNC6247-14-42 20:31:001.50[facility]annCHE[facility] MBIKC0389-30-31 20:31:0013 [facility]ann[facility] HSUYK7596-08-86 20:31:85632Pzsvakxe HermannHEMATOLOGY 2017-03-02 20:31:0014.8[facility] VxivqzhHEFWFLGCHR0302-94-70 20:31:008.7[facility] RaeypogGNEBFRTLYZ3276-89-89 20:31:96846Rwyaagcv RumtnodJXATQTVNLJ4428-04-48 20:31:0033.2[facility] KxfggofTMOWIBHBFN1829-88-87 20:31:00* Test Item Value Reference Range Interpretation Comments MCH (test code = MCH) 28.8 pg 27.0-31.0 Memorial DcvqywdYCNCNIDOCY5007-68-65 20:31:0086.6[facility]annHEMATOLOGY 2017-03-02 20:31:006.2[facility] OsjsgvhRLMQULJPYB3516-05-17 20:31:004.87[facility] WbobxloRWRLNYKEXN3297-71-16 20:31:0014.0[facility] YijavxhYQVJANOWOX3312-32-23 20:31:0042.2[facility] ZtuplqbUSJTOCCOGN0628-30-66 20:31:0027.7[facility] N[facility] DEIJDJWLYQ1366-79-57 20:31:0059.9[facility] AnrhqxjWUZIEDIJKW1052-91-66 20:31:00 0.3[facility] AzfmltzWIONGGGVXE4617-58-32 20:31:002.9[facility]annHEMATOLOGY 2017-03-02 20:31:009.2[facility] PxcnusbQMTVCDPBCJ5856-36-48 20:31:000.2[facility] UvulhqiLJHXNCVTKG6869-73-61 20:31:003.7[facility] JuiuocpDQLIMRROSR6493-97-10 20:31:000.6[facility] TlrjgzsPJYZQLNROB0225-45-97 20:31:001.7[facility]
[2019-10-29] MEDS: OCTREOTIDE ACETATE 500 MCG in SODIUM CHLORIDE 0.9% 250ML 250 ML IV SCH (16:05)
--- NOTE | 2019-10-29 16:06 | Emergency Department Note ---
History of Present Illnes History of Present Illness Chief Complaint: General Medicine Complaints History of Present Illness This is a 69 year old male SENT OVER FROM DR. Ene MORTENSEN'S OFFICE FOR HGB 3.1 STATES HE FEELS VERY WEAK AND C/O BLACK STOOLS PT PRESENTS PALE MD IN ROOM DURING TRIAGE. Historian: Patient Arrival Mode: Car Onset (how long ago): week(s) Location: BLACK STOOLS Radiation: Reports non-radiation Severity: severe Onset quality: gradual Duration (how long): week(s) Timing of current episode: intermittent Chronicity: new Context: Denies recent illness Relieving factors: none Exacerbating factors: none Past Medical/Family History Physician Review I have reviewed the patient's past medical and family history. Any updates have been documented here. Past Medical History Recent Fever: No Clinical Suspicion of Infectio: No New/Unexplained Change in Ment: No Past Medical History: Hypertension, Diabetes, [place], Hypothyroidism, CAD, Hyperlipedemia Past Surgical History: Pacer/AICD Other Surgery: TRIPLE BYPASS ABD/INGUINAL HERNIA Social History Smoking Cessation: Never Smoker Counseling Performed: No Alcohol Use: Occasional Any Illegal Drug Use: No TB Exposure/Symptoms: No Physically hurt or threatened: No Family History Family history of heart diseas: Yes Other Last Tetanus: UTD Any Pre-Existing Lines (PICC,: No Review of Systems Review of Systems Constitutional: Reports malaise, Reports weakness EENTM: Reports no symptoms Cardiovascular: Reports no symptoms Respiratory: Reports no symptoms Gastrointestinal: Reports other (BLACK STOOL) Genitourinary: Reports no symptoms Musculoskeletal: Reports no symptoms Integumentary: Reports no symptoms Neurological: Reports no symptoms Psychological: Reports no symptoms Endocrine: Reports no symptoms Hematological/Lymphatic: Reports no symptoms Review of other systems All other systems reviewed and negative. Physical Exam Related Data Allergies: Coded Allergies: No Known Allergies (Unverified , 10/29/19) Triage Vital Signs Vital Signs Date Time Temp Pulse Resp B/P (MAP) Pulse Ox O2 Delivery O2 Flow Rate FiO2 10/29/19 13:50 97.7 70 16 117/62 100 Vital signs reviewed: Yes Physical Exam CONSTITUTIONAL Constitutional: Reports ill appearing HENT HENT: Reports normocephalic, Reports atraumatic, Reports oropharynx clear/moist, Reports nose normal HENT L/R: Reports left ext ear normal, Reports right ext ear normal EYES Eyes: Reports PERRL, Reports conjunctivae normal NECK Neck: Reports ROM normal PULMONARY Pulmonary: Reports effort normal, Reports breath sounds normal CARDIOVASCULAR Cardiovascular: Reports murmur (2/6 SYS MURMUR) GASTROINTESTINAL Abdominal: Reports soft, Reports nontender, Reports bowel sounds normal GENITOURINARY Genitourinary: Reports exam deferred SKIN Skin: Reports pale MUSCULOSKELETAL Musculoskeletal: Reports ROM normal NEUROLOGICAL Neurological: Reports alert, Reports oriented x 3, Reports no gross motor or sensory deficits PSYCHOLOGICAL Psychological: Reports mood/affect normal, Reports judgement normal Results Laboratory Result Diagram: 10/29/19 1430 10/29/19 1430 Laboratory Laboratory Tests Test 10/29/19 14:30 White Blood Count 5.20 x10e3/uL (4.8-10.8) Red Blood Count 2.47 x10e6/uL (4.3-5.7) Hemoglobin 3.8 g/dL (14.0-18.0) Hematocrit 17.0 % (38.2-49.6) Mean Corpuscular Volume 68.8 fL (81-99) Mean Corpuscular Hemoglobin 15.4 pg (28-32) Mean Corpuscular Hemoglobin Concent 22.4 g/dL (31-35) Red Cell Distribution Width 22.0 % (11.7-14.4) Platelet Count 248 x10e3/uL (140-360) Neutrophils (%) (Auto) 55.5 % (38.7-80.0) Lymphocytes (%) (Auto) 33.5 % (18.0-39.1) Monocytes (%) (Auto) 8.3 % (4.4-11.3) Eosinophils (%) (Auto) 2.1 % (0.0-6.0) Basophils (%) (Auto) 0.2 % (0.0-1.0) Neutrophils # (Auto) 2.9 (2.1-6.9) Lymphocytes # (Auto) 1.7 (1.0-3.2) Monocytes # (Auto) 0.4 (0.2-0.8) Eosinophils # (Auto) 0.1 (0.0-0.4) Basophils # (Auto) 0.0 (0.0-0.1) Absolute Immature Granulocyte (auto 0.02 x10e3/uL (0-0.1) Prothrombin Time 36.6 seconds (11.9-14.5) Prothromb Time International Ratio 3.35 Activated Partial Thromboplast Time 49.7 seconds (23.8-35.5) Sodium Level 137 mmol/L (136-145) Potassium Level 3.5 mmol/L (3.5-5.1) Chloride Level 101 mmol/L (98-107) Carbon Dioxide Level 25 mmol/L (22-29) Anion Gap 14.5 mmol/L (8-16) Blood Urea Nitrogen 16 mg/dL (7-26) Creatinine 1.58 mg/dL (0.72-1.25) Estimat Glomerular Filtration Rate 43 ML/MIN (60-) BUN/Creatinine Ratio 10 (6-25) Glucose Level 99 mg/dL (74-118) Calcium Level 8.8 mg/dL (8.4-10.2) Total Bilirubin 2.0 mg/dL (0.2-1.2) Aspartate Amino Transf (AST/SGOT) 22 IU/L (5-34) Alanine Aminotransferase (ALT/SGPT) 19 IU/L (0-55) Alkaline Phosphatase 98 IU/L (40-150) Creatine Kinase 66 IU/L (30-200) Creatine Kinase MB 0.70 ng/mL (0-5.0) Troponin I 0.054 ng/mL (0-0.300) Total Protein 7.3 g/dL (6.5-8.1) Albumin 3.4 g/dL (3.5-5.0) Globulin 3.9 g/dL (2.3-3.5) Albumin/Globulin Ratio 0.9 (0.8-2.0) Lab results reviewed: Yes Imaging Imaging results reviewed: Yes Impressions Procedure: [id number] DX/CHEST SINGLE (PORTABLE) Exam Date: 10/29/19 Exam Time: 1430 REPORT STATUS: Signed EXAMINATION: CHEST SINGLE (PORTABLE) INDICATION: GI bleed COMPARISON: None FINDINGS: LINES/TUBES:Left chest pacer. EKG leads overlie the chest. LUNGS:The right lung is well-inflated. Left lung volume is relatively low. Patchy left lower lung opacities. PLEURA:Likely small left pleural effusion. No pneumothorax. MEDIASTINUM:The cardiomediastinal silhouette appears normal in size and shape. Postoperative findings of prior CABG. BONES/SOFT TISSUES:No acute osseous injury. Anatomy wires in place. ABDOMEN:No free air under the diaphragm. IMPRESSION: Likely small left pleural effusion. Left lower lung patchy opacities, most likely subsegmental atelectasis. Signed by: Anai Encarnacion MD on 10/29/2019 2:57 PM Diagnostics Tests Diagnostic test(s) reviewed: Yes Procedures 12 Lead ECG Interpretation ECG Interpretation : ECG: ECG 1 Cap Parts Cutter: Interpreted by ED physician Date: Oct 29, 2019 Time: 13:45 Rhythm: paced (CONTINUOUS AV PACED) Clinical Impression: abnormal ECG Assessment & Plan Medical Decision Making MDM GI BLEED, CHECK CBC, CHEM'S, CARDIAC ENZYMES, PT/PTT, T&C, TRANSFUSE BLOOD AND PLASMA IF INR ELEV. WE DO NOT HAVE ANDEXANET OR PCC'S BUT LAST MELENA WAS 2 D AGO, LAST TOOK XARELTO THIS AM Reassessment Reassessment SPOKE WITH DR JJ FOR ADMISSION (COVERING FOR [facility] [email or web address] DR Luis GARCIA, DR Rosana MORTENSEN, DR Shanell MORTENSEN Assessment & Plan Final Impression: (1) GI bleed Last Vital Signs Date Time Temp Pulse Resp B/P (MAP) Pulse Ox O2 Delivery O2 Flow Rate FiO2 10/29/19 13:50 97.7 70 16 117/62 100 Medications in the ED Pantoprazole Sodium 80 mg ONCE ONCE IV Last administered on 10/29/19at 14:34; Admin Dose 80 MG; Start 10/29/19 at 14:30; Stop 10/29/19 at 14:31; Status DC Sodium Chloride 1,000 ml @ 0 mls/hr Q0M STAT IV ; Start 10/29/19 at 14:01; Stop 10/29/19 at 14:09; Status DC Sodium Chloride 250 ml @ 0 mls/hr ONCE ONCE IV ; Start 10/29/19 at 14:15; Stop 10/29/19 at 14:16; Status DC Furosemide 20 mg Q2HR PRN IV SHORTNESS OF BREATH; Start 10/29/19 at 14:15; Stop 11/28/19 at 14:14 Octreotide Acetate 0.05 mg ONCE STAT IV ; Start 10/29/19 at 15:12; Stop 10/29/19 at 15:19; Status DC ABEL DE LOS SANTOS MD Oct 29, 2019 16:06
[2019-10-29] MEDS ORDERED: ONDANSETRON HCL INJ 2MG/ML 2ML 2 MG/ML VIAL ONE (16:16)
[2019-10-29] MEDS ORDERED: ONDANSETRON HCL INJ 2MG/ML 2ML 2 MG/ML VIAL IV STA (16:19)
[2019-10-29] MEDS ORDERED: SODIUM CHLORIDE 0.9% 250ML 250 ML ONE (17:20)
--- NOTE | 2019-10-29 19:19 | NUR ---
RECEIVED REPORT FROM RIGO RIDLEY; ASSUMED CARE AT THIS TIME, INITIAL CONTACT WITH PT, SANDOSTATIN INFUSING WELL TO LT AC PIV, FIRST UNIT OF PRBC INFUSING WELL TO RT AC PIV, PT DENIES ANY C/O, NO NEEDS VOICED AT THIS TIME; PT IS PALE, BUT V/S/S, BREATHING E/U, NAD NOTED, WILL CONTINUE TO MONITOR PT; DAUGHTER AT BEDSIDE, CALL LIGHT IN REACH.
[2019-10-29 19:40] LABS: BILIRUBIN,URINE NEGATIVE (NEGATIVE); CLARITY,URINE SL CLOUDY (CLEAR); COLOR,URINE YELLOW (YELLOW); KETONES,URINE NEGATIVE (NEGATIVE); LEUKOCYTE ESTERASE ,URINE NEGATIVE (NEGATIVE); NITRITE,URINE NEGATIVE (NEGATIVE); PROTEIN,URINE DIPSTICK NEGATIVE (NEGATIVE); URINE UROBILINOGEN 1 mg/dL (0.2 - 1)
[2019-10-29 19:56] LABS: EPITHELIAL CELLS,URINE RARE /LPF; WBC,URINE (MAN) 0-5 /HPF (0-5)
--- NOTE | 2019-10-29 20:00 | NUR ---
FIRST BAG OF PRBC COMPLETED AT THIS TIME, PT WILL BE GIVEN LASIX IV, WILL CONTINUE TO MONITOR PT AND ADMINISTER BLOOD PRODUCTS ARE ORDERED BY DAY SHIFT ED MD; PT V/S/S, DENIES S/S OF ADVERSE REACTION, BREATHING E/U, WILL CONTINUE TO MONITOR.
[2019-10-29] MEDS: FUROSEMIDE INJ 10 MG/ML 2 ML VIAL IV PRN ×2 (20:15→22:40)
[2019-10-29 20:54] LABS: EOSINOPHILS # (AUTO) 0.1 (0.0-0.4); HEMATOCRIT 16.4 % (38.2-49.6); LYMPHOCYTES # (AUTO) 1.2 (1.0-3.2); LYMPHOCYTES % 32.4 % (18.0-39.1); MEAN CORPUSCULAR VOLUME 71.9 fL (81-99); MONOCYTES # (AUTO) 0.4 (0.2-0.8); MONOCYTES % 9.7 % (4.4-11.3); NEUTROPHILS % 54.9 % (38.7-80.0); PLATELET COUNT 167 x10e3/uL (140-360); RED BLOOD COUNT 2.28 x10e6/uL (4.3-5.7); RED CELL DISTRIBUTION WIDTH 22.1 % (11.7-14.4)
[2019-10-29 20:58] LABS: HEMOGLOBIN 4.1 g/dL (14.0-18.0)
[2019-10-29] MEDS ORDERED: PANTOPRAZOLE 40 MG 10ML VIAL IV SCH (21:00)
[2019-10-29 21:15] LABS: CREATINE KINASE MB 0.6 ng/mL (0-5.0)
[2019-10-29 21:20] LABS: LYMPHOCYTES % (MANUAL) 37 % (19-48); MONOCYTES % (MANUAL) 4 % (3.4-9.0); NEUTROPHILS % (MANUAL) 59 % (40-74)
--- NOTE | 2019-10-29 21:20 | NUR ---
BEDSIDE VERIFICATION COMPLETED WITH RIGO MCWILLIAMS; PT TO RECEIVE ONE UNIT FFP PER ORDERS; OF NOW PATIENT HAS RECEIVED ONE UNIT PRBC WITH THREE UNITS TO GIVE; WILL STAY WITH PATIENT AT BEDSIDE FOR INITAL 15 MINUTES OF TRANSFUSION, SEE TRANSFUSION DOCUMENTATION ON PAPER CHART.
[2019-10-29 21:21] LABS: ANISOCYTOSIS SLIGHT; HYPOCHROMASIA MODERATE; MICROCYTOSIS SLIGHT; PLATELET ESTIMATE ADEQUATE; PLATELET MORPHOLOGY COMMENT NORMAL; POIKILOCYTOSIS SLIGHT; RBC MORPHOLOGY COMMENT ABNORMAL
--- NOTE | 2019-10-29 22:05 | Consultation ---
DATE OF CONSULTATION: Pulmonary Critical Care Consultation CHIEF COMPLAINT: Weakness and hemoglobin of 3.3. HISTORY OF PRESENT ILLNESS: The patient is a 69-year-old man. He has history of cirrhosis and cardiac disease. He has been feeling weak over the past several months. He has noticed some weight loss. He believes he has lost about 28 pounds. 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 The hemoglobin was 3.3. The patient denies any rectal bleeding. He denies any vomiting or hematemesis. He does complain of some epigastric discomfort. PAST SURGICAL HISTORY: 1. Coronary artery bypass grafting in 2008. 2. Status post pacemaker placement. 3. Status post hernia repair. PAST MEDICAL HISTORY: 1. Diabetes. 2. Hypertension. 3. Gastroesophageal reflux. FAMILY HISTORY: Father with diabetes and strokes. His mother also had heart disease. SOCIAL HISTORY: The patient is not an active drinker. He is a former smoker. ALLERGIES: NO KNOWN DRUG ALLERGIES. REVIEW OF SYSTEMS: The patient is afebrile. He has no headache. He is not having any neck pain. He is not having any chest pain. He does note some dyspnea. He has some abdominal discomfort in the epigastric area. He has no nausea or vomiting. He has no rectal bleeding. PHYSICAL EXAMINATION: VITAL SIGNS: The patient is afebrile, blood pressure is 145/64, saturation is 99%, the pulse is 70, and the respiratory rate is 19. HEENT: Shows no facial swelling or erythema. CARDIAC: Reveals regular rate and rhythm with normal S1, S2. LUNGS: Auscultation of lungs shows decreased breath sounds at the bases. There is no wheezing. ABDOMEN: Soft. Nontender. There is no rebound. EXTREMITIES: Shows no leg edema or calf tenderness. There is no cyanosis or clubbing. SKIN: Shows no rashes. LABORATORY DATA: Hemoglobin is 3.8 with white blood cell count of 5.2 and platelet count of 248. BUN to creatinine ratio is 16 to 1.58. INR is 3.35. IMPRESSION: 1. Anemia secondary to acute blood loss. 2. Acute kidney injury. 3. Coronary artery disease. 4. Hypertension. 5. Atrial fibrillation. 6. Diabetes. PLAN: 1. Begin transfusion with packed red blood cells. 2. Hold Xarelto. 3. Continue current diabetic regimen. 4. Continue thyroid medication. 5. GI consultation. 6. Monitor liver function and renal function. MD ANGEL LUIS Otero/JACKIE /[id number]
--- NOTE | 2019-10-29 23:33 | NUR ---
RECEIVED JANETTE FROM DR. GARCIA FOR ADDITIONAL JUMBO UNIT OF FFP, ORDERS PLACED, LAB INFORMED.
--- NOTE | 2019-10-29 23:50 | NUR ---
PT SWABBED FOR COVID-19 AT THIS TIME
[2019-10-30] VITALS (17 sets, daily range): BP systolic 115–138; BP diastolic 58–78
[2019-10-30] MEDS ORDERED: PANTOPRAZOL 40MG/SOD CHL 0.9% 250 ML IV SCH (00:15)
[2019-10-30] MEDS ORDERED: SODIUM CHLORIDE 0.9% 250ML 250 ML ONE ×2 (00:20→20:38)
[2019-10-30] MEDS ORDERED: XARELTO20 MG PO (01:07)
[2019-10-30] MEDS ORDERED: ASPIRIN EC81 MG PO (01:07)
[2019-10-30] MEDS ORDERED: FUROSEMIDE40 MG PO (01:07)
[2019-10-30] MEDS ORDERED: NITROGLYCERIN0.4 MG SL (01:07)
[2019-10-30] MEDS ORDERED: ATORVASTATIN CA20 MG PO (01:07)
[2019-10-30] MEDS ORDERED: LEVOTHYROXINE75 MCG PO (01:07)
[2019-10-30] MEDS ORDERED: METOPROLOL TART25 MG PO (01:07)
[2019-10-30] MEDS: PANTOPRAZOLE 40 MG 10ML VIAL IV SCH ×2 (02:45→17:47)
[2019-10-30] MEDS ORDERED: OCTREOTIDE ACETATE 1 ML ONE (02:47)
[2019-10-30] MEDS: OCTREOTIDE ACETATE 500 MCG in SODIUM CHLORIDE 0.9% 250ML 250 ML IV SCH ×3 (02:53→22:00)
[2019-10-30] MEDS: FUROSEMIDE INJ 10 MG/ML 2 ML VIAL IV PRN ×2 (04:17→23:56)
[2019-10-30 05:01] LABS: BASOPHILS % 0.3 % (0.0-1.0); EOSINOPHILS # (AUTO) 0.1 (0.0-0.4); EOSINOPHILS % 2.3 % (0.0-6.0); LYMPHOCYTES # (AUTO) 0.9 (1.0-3.2); LYMPHOCYTES % 26.3 % (18.0-39.1); MEAN CORPUSCULAR HEMOGLOBIN 19.1 pg (28-32); MEAN CORPUSCULAR HGB CONC 25.9 g/dL (31-35); MEAN CORPUSCULAR VOLUME 73.8 fL (81-99); MONOCYTES # (AUTO) 0.4 (0.2-0.8); MONOCYTES % 10.2 % (4.4-11.3); NEUTROPHILS # (AUTO) 2.1 (2.1-6.9); NEUTROPHILS % 60.3 % (38.7-80.0); PLATELET COUNT 165 x10e3/uL (140-360); RED BLOOD COUNT 2.56 x10e6/uL (4.3-5.7); RED CELL DISTRIBUTION WIDTH 22.2 % (11.7-14.4)
[2019-10-30 05:03] LABS: HEMOGLOBIN 4.9 g/dL (14.0-18.0)
[2019-10-30 05:04] LABS: HEMATOCRIT 18.9 % (38.2-49.6)
[2019-10-30 05:15] LABS: INR 2.39; PARTIAL THROMBOPLASTIN TIME 44.4 seconds (23.8-35.5); PROTHROMBIN TIME 27.9 seconds (11.9-14.5)
[2019-10-30 05:56] LABS: ALBUMIN 3.2 g/dL (3.5-5.0); ANION GAP 15.4 mmol/L (8-16); CALCIUM 8.2 mg/dL (8.4-10.2); CREATININE, SERUM 1.51 mg/dL (0.72-1.25); POTASSIUM 3.4 mmol/L (3.5-5.1)
[2019-10-30 06:34] LABS: CREATINE KINASE MB 0.4 ng/mL (0-5.0)
[2019-10-30] MEDS ORDERED: HYDROCODONE/APAP 10MG-325MG TAB PO PRN (09:00)
[2019-10-30] MEDS ORDERED: PHYTONADIONE 10 MG/ML AMP IV ONE ×2 (09:15→22:45)
[2019-10-30] MEDS ORDERED: PHYTONADIONE 10MG/ML 20 MG in SODIUM CHLORIDE 0.9% 50ML 50 ML IV SCH (09:30)
--- NOTE | 2019-10-30 09:36 | History and Physical ---
I am covering for Dr. Dunne. HISTORY OF PRESENT ILLNESS: Mr. Kingston is a 69-year-old man with history of diabetes, hypertension, reflux, coronary artery disease, status post CABG, atrial fibrillation, who went to see his chiseler head for followup. He was feeling very bad and weak. Blood work showed a hemoglobin of 3.3, so the patient was sent to the emergency room for admission. He states he had dark stools for several days. At the present time, the patient states that happen the 2 days prior to admission. PAST MEDICAL HISTORY: Coronary artery disease, diabetes, hypertension, reflux. PAST SURGICAL HISTORY: CABG in 2008, placement of pacemaker, hernia repair. SOCIAL HISTORY: He is a former smoker, but he does not drink. ALLERGIES: NO KNOWN DRUG ALLERGIES. PHYSICAL EXAMINATION: GENERAL: Today, he is awake and alert. He is feeling better. VITAL SIGNS:: Temperature is 97.9, blood pressure 120/66. HEART: Regular rate. LUNGS: Clear to auscultation. ABDOMEN: Soft. LABORATORY DATA: On the blood work, white count 3.56, hemoglobin is 4.9, and hematocrit is 18.9. Potassium 3.4, creatinine 1.51. Bilirubin 2.1. Coagulation, INR is 2.39 now. COVID testing is pending. Urine culture is pending. Chest x-ray on admission shows a small left pleural effusion, left lower lung patchy opacities. ASSESSMENT: 1. Upper gastrointestinal bleed. 2. Anemia secondary to blood loss. 3. 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 4. Chronic kidney disease, stage 3. 5. History of atrial fibrillation. 6. Hypertension. 7. Reflux. 8. Coronary artery disease, status post coronary artery bypass grafting. 9. Presence of permanent pacemaker. 10. Hyperlipidemia. PLAN: At present time, the patient was admitted to ICU. Monitor his CBC q.6 hours. Transfuse to keep his hemoglobin more than 8 and continue to monitor for any recurrent bleeding. Sliding scale with insulin. Restart some of his home medications. We have on the case, Critical Care, Dr. Candelario. We have for GI, Dr. Ciro Layne. We are going to hold Xarelto. The overall prognosis remains guarded. I spent more than 45 minutes examining the patient, reviewing lab results, x-rays and discussing plan of care with the patient. MD JOSSUE Parisi/JACKIE /[id number]
--- NOTE | 2019-10-30 10:22 | Consultation ---
DATE OF CONSULTATION: Cardiology Consult HISTORY OF PRESENT ILLNESS: Kendall Kingston is a 69-year-old male with primary history of hypertension, CAD with CABG in 2008, atrial fibrillation/atrial flutter (taking Xarelto), previous ablation, hyperlipidemia, diabetes type 2, thyroid disease, CHF with LVEF of 30%, admitted complaining of severe generalized weakness, fatigue and some shortness of breath. The patient denies any chest pain, palpitations, or dizziness. The patient also complained of minimal epigastric discomfort, but denies any blood in the stools. No nausea or vomiting. The patient also denies any recent falls. PAST MEDICAL HISTORY: As mentioned above. PAST SURGICAL HISTORY: CABG in 2009, a pacemaker, [employer] 2018, and hernia repair. FAMILY HISTORY: Father and had diabetes and CVA. Mother, heart disease. SOCIAL HISTORY: The patient is not an active drinker. He was a former smoker. ALLERGIES: NO KNOWN DRUG ALLERGIES. PHYSICAL EXAMINATION: VITAL SIGNS: Temperature 97.9, pulse of 70, respiration of 16, blood pressure is 120/66, pulse oximetry 95% on room air. GENERAL: The patient is well developed, well nourished, in no acute respiratory distress. SKIN: Pale, warm, and dry. HEENT: The patient's cranium is normocephalic and atraumatic. Pupils are equally round, reactive to light and accommodation. Sclerae pale. Ears normal. Mucosa moist. Throat is clear. NECK: Full range of motion. No cervical lymphadenopathy. No thyromegaly. no JVD. RESPIRATORY: Normal respiratory effort. LUNGS: Diminished breath sounds throughout lung turner. CARDIOVASCULAR: S1 and S2 is audible, although there is 3/6 systolic murmur heard. GI: Soft, mildly tender epigastric area. Nondistended. Bowel sounds are present. EXTREMITIES: No cyanosis, no clubbing, no edema. NEUROVASCULAR: Motor is intact. Pulses are palpable, but weak. NEUROLOGIC: Motor and sensory examination of the upper and lower extremities are normal. Reflexes are normal and symmetrical bilaterally. IMPRESSION AND PLAN: 1. The patient admitted with profound fatigue and found to have a hemoglobin of 3.3 and also elevated INR of 3.35. 2. GI consultation to evaluate anemia or give blood transfusion, packed RBCs and FFP. 3. Monitor intake and output and electrolytes and replace electrolytes as needed and give diuretics after multiple blood transfusion. Continue beta nolan and hold Xarelto. 4. Further recommendation will follow according to the patient's clinical course. Thank you for this consultation. Dictated by Kira Campos, PAPER [employer]E GRADER MD SAUD Borrero/JACKIE /[id number]
[2019-10-30 13:00] LABS: ELLIPTOCYTE, RBC SLIGHT; OVALOCYTES FEW
[2019-10-30 13:01] LABS: ANISOCYTOSIS MARKED; MICROCYTOSIS SLIGHT
[2019-10-30 13:02] LABS: HYPOCHROMASIA MARKED; PLATELET ESTIMATE ADEQUATE; PLATELET MORPHOLOGY COMMENT NORMAL; RBC MORPHOLOGY COMMENT ABNORMAL; SCHISTOCYTES RARE
--- NOTE | 2019-10-30 13:56 | NUR ---
Nutrition Intervention Note RD Recommendation(s) for Physician: -If GI is ok to feed, rec advance diet as tolerated to ADA 1800/ mechanical soft with Glucerna BID -Consult [facility]IV[facility] PRESIDENT for reported swallowing difficulty -The patient meets criteria for MODERATE protein-calorie malnutrition. Plan of Care: RD following, monitoring for tolerance and adequacy Nutrition reason for involvement: [facility] RD Assessment (10/29) 69yo M, who was admitted with profound fatigue and found to have a hemoglobin of 3.3 and also elevated INR of 3.35. GI has been consulted. Visited pt in the room. Northern [place] speaking only. Per daughter on bedside, pt has lost over 30lbs since 05/2019 due to ongoing dental issue. Pt has not been able to get denture done. Pt usually eats a soft food diet with Ensure 1-2x a day. No complains of nausea or vomiting. LBM 3 days ago. Per daughter, pt also had some swallowing difficulty with both foods and liquid [employer]. Currently NPO. Will continue to monitor and follow. Principal Problems/Diagnoses: Anemia secondary to blood loss, GI bleed PMH: hypertension, CAD with CABG in 2008, atrial fibrillation/atrial flutter (taking Xarelto), previous ablation, hyperlipidemia, diabetes type 2, thyroid disease, CHF with LVEF of 30% I/O: +525ml / -750ml GI: abdomen soft, flat, non-tender, no BM since admission Skin: intact Labs: (10/29) K 3.4 L, creatinine 1.51 H, Ca 8.2 L Meds: (10/29) lasix, protonix Ht: 67in Wt: 167.88lb BMI: 26.3kg/m2 IBW: 148lb +/- 10% Malnutrition Evaluation (10/30/2019) The patient meets criteria for MODERATE protein-calorie malnutrition. 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 Nutrition Care Level: moderate Nutrition Diagnosis: Malnutrition related to decreased PO intake as evidenced by 30lbs weight loss in 6 months, loss of muscle and fat mass. Goal: Patient will meet 75-100% of estimated needs by follow up Progress: N/A Interventions: Modified diet, Commercial beverage, Recommended Modifications, Collaboration with other providers Monitoring/Evaluation: Total energy intake, Total protein intake, Modified diet, Liquid supplement, Weight change Signed: Carmen Aguilar, MS, RD, LD
--- NOTE | 2019-10-30 15:34 | Progress Note ---
DATE: SUBJECTIVE: The patient received several units of packed red blood cells. There is no obvious hematochezia, hematemesis, or active bleeding. PHYSICAL EXAMINATION: VITAL SIGNS: The patient is afebrile. The blood pressure is 116/72, saturation is 94%, and the pulse is 70. HEENT: Shows no facial swelling or erythema. CARDIAC: Reveals regular rate and rhythm with normal S1, S2. LUNGS: Auscultation of lungs shows clear breath sounds bilaterally. There is no wheezing. ABDOMEN: Soft and nontender. There is no rebound or guarding. EXTREMITIES: Examination of the extremities shows no leg edema or calf tenderness. There is no cyanosis or clubbing. SKIN: No rashes. IMPRESSION: 1. Anemia secondary to acute blood loss. 2. Acute kidney injury. 3. Hypertension. 4. Atrial fibrillation. 5. Diabetes. PLAN: 1. Continue transfusion as needed. 2. Repeat CBC. 3. Await CT scan of abdomen and pelvis. 4. Continue to hold Xarelto, monitor coags. Manjit Candelario MD [facility]/MODL /[id number]
[2019-10-30 16:14] LABS: BASOPHILS % 0.2 % (0.0-1.0); EOSINOPHILS # (AUTO) 0.1 (0.0-0.4); EOSINOPHILS % 2.5 % (0.0-6.0); HEMATOCRIT 26.2 % (38.2-49.6); HEMOGLOBIN 7.3 g/dL (14.0-18.0); LYMPHOCYTES # (AUTO) 0.9 (1.0-3.2); MEAN CORPUSCULAR HEMOGLOBIN 21.2 pg (28-32); MEAN CORPUSCULAR HGB CONC 27.9 g/dL (31-35); MEAN CORPUSCULAR VOLUME 75.9 fL (81-99); MONOCYTES # (AUTO) 0.3 (0.2-0.8); MONOCYTES % 6.8 % (4.4-11.3); NEUTROPHILS # (AUTO) 3.4 (2.1-6.9); NEUTROPHILS % 71.1 % (38.7-80.0); PLATELET COUNT 145 x10e3/uL (140-360); RED BLOOD COUNT 3.45 x10e6/uL (4.3-5.7); RED CELL DISTRIBUTION WIDTH 20.6 % (11.7-14.4)
--- NOTE | 2019-10-30 16:29 | Diagnostic Imaging Report ---
EXAM: CT Abdomen and Pelvis WITHOUT intravenous contrast INDICATION: Anemia COMPARISON: None. TECHNIQUE: Abdomen and pelvis were scanned utilizing a multidetector helical scanner from the lung base to the pubic symphysis without administration of IV contrast. Coronal and sagittal reformations were obtained. IV CONTRAST: None ORAL CONTRAST: Water COMPLICATIONS: None RADIATION DOSE: Total DLP: 699 mGy*cm Dose modulation, iterative reconstruction, and/or weight based adjustment of the mA/kV was utilized to reduce the radiation dose to as low as reasonably achievable. FINDINGS: LOWER THORAX: Bibasilar dependent subsegmental atelectasis. Moderate left pleural effusion. Trace right pleural effusion. Pacer leads partially visualized. Moderate hiatal hernia. HEPATOBILIARY: Nodular liver surface contour compatible with hepatic cirrhosis. 1.9 cm segment 6 hypodense lesion likely represents a cyst. Additional smaller right and left subcentimeter liver hypodensities are indeterminate on single phase imaging. SPLEEN: No splenomegaly. PANCREAS: No focal masses or ductal dilatation. ADRENALS: No adrenal nodules. KIDNEYS/URETERS: Bilateral renal cysts. No hydronephrosis or renal calculi. PELVIC ORGANS/BLADDER: Unremarkable. PERITONEUM / RETROPERITONEUM: Moderate ascites in the abdomen and pelvis. No free air. LYMPH NODES: No lymphadenopathy. VESSELS: Mild scattered atherosclerotic calcifications of the nonaneurysmal abdominal aorta and major branches. GI TRACT: Diverticulosis without CT evidence of diverticulitis. No abnormal bowel thickening. No bowel obstruction. Normal appendix. BONES AND SOFT TISSUES: No acute osseous injury. No suspicious lytic or blastic lesions. Mild diffuse osteopenia. Degenerative changes of the visualized spine. Diffuse subcutaneous soft tissue edema. IMPRESSION: No evidence of retroperitoneal hematoma. Hepatic cirrhosis and moderate volume ascites. Small subcentimeter hypodense lesions in the right and left liver are indeterminate on noncontrast imaging. In the setting of cirrhosis, recommend liver protocol MRI or CT for further evaluation. Moderate left pleural effusion. Small right pleural effusion. Bibasilar dependent subsegmental atelectasis. Hiatal hernia. Signed by: Anai Encarnacion MD on 10/30/2019 4:26 PM
[2019-10-30] MEDS ORDERED: CITRATE OF MAGNESIA 300ML BOTTLE PO ONE (17:00)
[2019-10-30] MEDS ORDERED: SODIUM CHLORIDE 0.9% 250ML 250 ML IV ONE (17:00)
[2019-10-30 17:49] LABS: INR 1.72; PROTHROMBIN TIME 21.4 seconds (11.9-14.5)
[2019-10-30] MEDS ORDERED: BISACODYL 5 MG TAB EC PO ONE (22:45)
[2019-10-30] MEDS ORDERED: SODIUM CHLORIDE 0.9% 100 ML ONE (23:32)
[2019-10-31] VITALS (23 sets, daily range): BP systolic 116–154; BP diastolic 55–77
[2019-10-31] MEDS: FUROSEMIDE INJ 10 MG/ML 2 ML VIAL IV PRN (04:41)
[2019-10-31 06:04] LABS: BASOPHILS % 0.2 % (0.0-1.0); EOSINOPHILS # (AUTO) 0.1 (0.0-0.4); EOSINOPHILS % 2.2 % (0.0-6.0); HEMATOCRIT 32.9 % (38.2-49.6); HEMOGLOBIN 9.4 g/dL (14.0-18.0); LYMPHOCYTES # (AUTO) 1.1 (1.0-3.2); LYMPHOCYTES % 19.4 % (18.0-39.1); MEAN CORPUSCULAR HEMOGLOBIN 22.8 pg (28-32); MEAN CORPUSCULAR HGB CONC 28.6 g/dL (31-35); MEAN CORPUSCULAR VOLUME 79.9 fL (81-99); MONOCYTES # (AUTO) 0.5 (0.2-0.8); MONOCYTES % 8.2 % (4.4-11.3); NEUTROPHILS # (AUTO) 3.8 (2.1-6.9); NEUTROPHILS % 69.5 % (38.7-80.0); PLATELET COUNT 136 x10e3/uL (140-360); RED BLOOD COUNT 4.12 x10e6/uL (4.3-5.7); RED CELL DISTRIBUTION WIDTH 20.2 % (11.7-14.4)
[2019-10-31 06:07] LABS: INR 1.48; PROTHROMBIN TIME 18.9 seconds (11.9-14.5)
[2019-10-31] MEDS ORDERED: CITRATE OF MAGNESIA 300ML BOTTLE PO ONE (08:00)
[2019-10-31] MEDS: PANTOPRAZOLE 40 MG 10ML VIAL IV SCH ×2 (08:07→16:40)
--- NOTE | 2019-10-31 10:57 | Diagnostic Imaging Report ---
EXAM: Right upper quadrant abdominal ultrasound INDICATION: Right upper quadrant pain COMPARISON: CT abdomen and pelvis of 10/30/2019 TECHNIQUE: Transverse and longitudinal images of the right upper quadrant abdomen were obtained FINDINGS: Liver: Size: 15.4 cm in the right midclavicular line Appearance: Increased echogenicity, nodular contour Mass: Right hepatic 2.2 cm cyst. Additional small hypodense lesions seen on prior CT are not well-visualized. Gallbladder: Stones and sludge in the gallbladder. The gallbladder wall is mildly thickened to 5 mm. Negative sonographic Ballesteros's sign. Bile Ducts: Intrahepatic Ducts: No dilatation Extrahepatic Ducts: Common bile duct measures 4 mm Pancreas: Visualized portions of the pancreatic head, neck and proximal body are normal. Kidney: The right kidney measures 10.2 cm without evidence of hydronephrosis or stone. 2.3 cm simple cyst. Vessels: Aorta: Visualized portions are normal Inferior Vena Cava: Visualized portions are normal Main Portal Vein: 1.3 cm, normal size with hepatopetal flow. Free Fluid: Abdominal ascites. IMPRESSION: Stones and sludge in the gallbladder with mild gallbladder wall thickening. Negative sonographic Ballesteros's sign. Signed by: Anai Encarnacion MD on 10/31/2019 10:54 AM
[2019-10-31 11:34] LABS: PLATELET ESTIMATE ADEQUATE
[2019-10-31 11:35] LABS: ANISOCYTOSIS SLIG; HYPOCHROMASIA SLIG; POIKILOCYTOSIS SLIGHT; POLYCHROMASIA FEW
[2019-10-31 11:36] LABS: PLATELET MORPHOLOGY COMMENT FEW LARGE; SCHISTOCYTES RARE
--- NOTE | 2019-10-31 11:58 | Progress Note ---
DATE: 10/31/2019 SUBJECTIVE: Mr. Kingston is a 69-year-old man with history of diabetes, hypertension, reflux, coronary artery disease, status post CABG, atrial fibrillation who was on Xarelto. 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 Blood work showed hemoglobin of 3.3, so the patient was sent to the emergency room for admission. As per the patient, he was having dark stools. As per nurse, yesterday the patient is passing red blood. PHYSICAL EXAMINATION: GENERAL: He is awake and alert. VITAL SIGNS: Temperature is 97.7, blood pressure 154/77. HEART: Irregularly irregular. LUNGS: Poor inspiratory effort. ABDOMEN: Soft. LABORATORY DATA: On the blood work, white count is 5.46, hemoglobin is 9.4, hematocrit 33.9. Potassium 3.4, creatinine 1.51, and INR went down to 1.48. COVID is still pending. Urine culture so far negative. Abdominal and pelvic CT done yesterday showed no evidence of retroperitoneal hematoma, hepatic cirrhosis, moderate volume ascites, moderate left pleural effusion. ASSESSMENT: 1. Upper GI bleed. 2. Anemia secondary to blood loss. 3. 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 4. Chronic kidney disease, stage 3. 5. Atrial fibrillation. 6. Hypertension. 7. Reflux. 8. Coronary artery disease, status post coronary artery bypass grafting. 9. Presence of permanent pacemaker. 10. Hyperlipidemia. 11. Probably liver cirrhosis. PLAN: At present time is to continue to monitor the patient in ICU. CBCs every 6 hours. Transfuse if the hemoglobin is less than 8. Continue ADA diet, sliding scale with insulin. Continue other home medications. Critical care Dr. Candelario seen the patient with me as well as Ciro GAYLE. Xarelto was on hold and he is going to go for EGD and colonoscopy today. The overall prognosis remains guarded. I spent more than 35 minutes examining the patient, reviewing overnight event, lab results, and discussing plan of care with him. Francisca Perez MD JOSSUE/MODL /[id number]
[2019-10-31 12:59] LABS: BASOPHILS % 0.2 % (0.0-1.0); EOSINOPHILS # (AUTO) 0.1 (0.0-0.4); EOSINOPHILS % 2.4 % (0.0-6.0); HEMATOCRIT 32.1 % (38.2-49.6); HEMOGLOBIN 9.1 g/dL (14.0-18.0); LYMPHOCYTES # (AUTO) 1.1 (1.0-3.2); LYMPHOCYTES % 19.2 % (18.0-39.1); MEAN CORPUSCULAR HEMOGLOBIN 22.4 pg (28-32); MEAN CORPUSCULAR HGB CONC 28.3 g/dL (31-35); MEAN CORPUSCULAR VOLUME 79.1 fL (81-99); MONOCYTES # (AUTO) 0.5 (0.2-0.8); MONOCYTES % 8.3 % (4.4-11.3); NEUTROPHILS # (AUTO) 3.8 (2.1-6.9); PLATELET COUNT 154 x10e3/uL (140-360); RED BLOOD COUNT 4.06 x10e6/uL (4.3-5.7); RED CELL DISTRIBUTION WIDTH 20.4 % (11.7-14.4)
[2019-10-31] MEDS ORDERED: PROPOFOL IV EMULSION 10 MG/ML 20 ML VIAL ONE (14:33)
--- NOTE | 2019-10-31 14:43 | Progress Note ---
DATE: SUBJECTIVE: The patient is feeling better. He received multiple units of packed red blood cells. His hemoglobin is now 9.4. His platelet count is 136. His white blood cell count is 5.46. He had a CT scan of the abdomen and pelvis yesterday. There was no retroperitoneal bleeding. He is scheduled for an EGD today. PHYSICAL EXAMINATION: VITAL SIGNS: The blood pressure is 139/68 and saturation is 92%. His pulse is 70. HEENT: Shows no facial swelling or erythema. CARDIAC: Reveals regular rate and rhythm with normal S1 and S2. LUNGS: Auscultation of lungs shows decreased breath sounds at the bases. There is no wheezing. ABDOMEN: Soft. There is no rebound or guarding. EXTREMITIES: Shows no leg edema or calf tenderness. LABORATORY DATA: Creatinine is 1.51 and sodium is 138. Other electrolytes are within normal limits. Albumin is 3.2. RADIOGRAPHIC DATA: Abdominal ultrasound shows some sludge in the gallbladder and some ascites, but no acute cholecystitis. CT scan of the abdomen and pelvis shows no evidence of retroperitoneal hematoma. There is some cirrhosis and ascites present. There also is some pleural effusion. IMPRESSION: 1. Anemia secondary to acute blood loss. 2. Cirrhosis and portal hypertension. 3. Acute kidney injury. 4. Atrial fibrillation. 5. Diabetes. 6. Hypertension. PLAN: 1. The patient will go for EGD today. 2. Continue octreotide along with Protonix. 3. Continue to monitor renal function. 4. Continue to monitor blood counts. Manjit Candelario MD LM/JACKIE /[id number]
[2019-10-31] MEDS: OCTREOTIDE ACETATE 500 MCG in SODIUM CHLORIDE 0.9% 250ML 250 ML IV SCH (19:46)
[2019-10-31 20:25] LABS: BASOPHILS % 0.3 % (0.0-1.0); EOSINOPHILS # (AUTO) 0.2 (0.0-0.4); EOSINOPHILS % 2.8 % (0.0-6.0); HEMATOCRIT 32.3 % (38.2-49.6); HEMOGLOBIN 9.2 g/dL (14.0-18.0); LYMPHOCYTES % 16.5 % (18.0-39.1); MEAN CORPUSCULAR HEMOGLOBIN 22.7 pg (28-32); MEAN CORPUSCULAR HGB CONC 28.5 g/dL (31-35); MEAN CORPUSCULAR VOLUME 79.8 fL (81-99); MONOCYTES # (AUTO) 0.5 (0.2-0.8); MONOCYTES % 7.6 % (4.4-11.3); NEUTROPHILS # (AUTO) 4.4 (2.1-6.9); PLATELET COUNT 130 x10e3/uL (140-360); RED BLOOD COUNT 4.05 x10e6/uL (4.3-5.7); RED CELL DISTRIBUTION WIDTH 20.5 % (11.7-14.4)
[2019-11-01] VITALS (17 sets, daily range): BP systolic 114–153; BP diastolic 59–82
[2019-11-01] MEDS: OCTREOTIDE ACETATE 500 MCG in SODIUM CHLORIDE 0.9% 250ML 250 ML IV SCH (01:07)
--- NOTE | 2019-11-01 02:21 | Operative Report ---
DATE OF PROCEDURE: 10/31/2019 SURGEON: Ciro Layne MD PROCEDURE: EGD and colonoscopy. INDICATION FOR EGD: 1. Heartburn indigestion. 2. History of peptic ulcer disease, severe anemia. INDICATION FOR COLONOSCOPY: Severe anemia. MEDICATIONS: The patient was done under MAC. Please see anesthesiologist's note. PROCEDURE IN DETAIL: With the patient in left lateral decubitus position, a flexible fiberoptic Olympus gastroscope was introduced into the esophagus under direct visualization without any difficulty. There was some patchy erythema noted in distal esophagus. The scope was then advanced with ease into the stomach traversing a large hiatal hernia approximately 5 cm in size. Mucosa overlying the antrum and the body revealed some patchy erythema and there was some mild portal hypertensive gastropathy. Pylorus was of normal contour and shape. It was intubated with ease and the scope was advanced all the way to the second portion of the duodenum. The scope was then withdrawn slowly. Mucosa overlying the proximal second portion and the duodenal bulb appeared to be within normal limits. The scope was then withdrawn back into the stomach and retroflexed and previously described hiatal hernia was also noted in the retroflexed position. There were no obvious cardiac or fundus varices. The scope was then straightened out. It was subsequently withdrawn. The patient tolerated procedure well. IMPRESSION: 1. Distal esophagitis. 2. Large hiatal hernia. 3. Gastritis. 4. Portal hypertensive gastropathy, mild. PLAN: Follow H and H. Initiate Protonix 40 mg one p.o. q.a.m. a.c. The patient was then turned around after adequate lubrication of the anal canal. A flexible fiberoptic Olympus colonoscope was inserted into the rectum with ease and advanced all the way. It was then withdrawn slowly. Mucosa overlying the cecum, ascending, transverse, and descending revealed some minimal scattered diverticular disease. 1. Diverticulosis. Prominent diverticular disease was noted in the sigmoid colon. The rectum appeared within normal limits. The scope was then retroflexed into the distal rectum and small internal hemorrhoids were noted none of which was actively bleeding. The scope was then straightened out. It was subsequently withdrawn. The patient tolerated procedure well. IMPRESSION: 1. Diverticulosis. 2. Internal hemorrhoids, none actively bleeding. PLAN: Followup H and H. The patient will need a small bowel series and possibly a capsule endoscopy on an outpatient basis. Ciro Layne MD [facility] [place] /[id number] cc: MD Francisca Lopez MD
[2019-11-01 05:45] LABS: BASOPHILS % 0.4 % (0.0-1.0); EOSINOPHILS # (AUTO) 0.2 (0.0-0.4); EOSINOPHILS % 3.5 % (0.0-6.0); HEMATOCRIT 30.7 % (38.2-49.6); HEMOGLOBIN 8.7 g/dL (14.0-18.0); LYMPHOCYTES # (AUTO) 1.1 (1.0-3.2); LYMPHOCYTES % 24.2 % (18.0-39.1); MEAN CORPUSCULAR HEMOGLOBIN 22.4 pg (28-32); MEAN CORPUSCULAR HGB CONC 28.3 g/dL (31-35); MEAN CORPUSCULAR VOLUME 78.9 fL (81-99); MONOCYTES # (AUTO) 0.4 (0.2-0.8); MONOCYTES % 9.2 % (4.4-11.3); NEUTROPHILS # (AUTO) 2.8 (2.1-6.9); PLATELET COUNT 132 x10e3/uL (140-360); RED BLOOD COUNT 3.89 x10e6/uL (4.3-5.7); RED CELL DISTRIBUTION WIDTH 20.4 % (11.7-14.4)
[2019-11-01 06:30] LABS: ALBUMIN 3.1 g/dL (3.5-5.0); ALBUMIN/GLOBULIN RATIO 0.9 (0.8-2.0); ANION GAP 12.3 mmol/L (8-16); CALCIUM 8.5 mg/dL (8.4-10.2); CREATININE, SERUM 1.27 mg/dL (0.72-1.25); POTASSIUM 3.3 mmol/L (3.5-5.1)
--- NOTE | 2019-11-01 06:39 | Diagnostic Imaging Report ---
EXAMINATION: CHEST SINGLE (PORTABLE) INDICATION: ^cirrhosis ^[id number] ^[id number] COMPARISON: 10/29/2019 FINDINGS: AP view TUBES and LINES: Stable dual-lead left chest wall cardiac device. LUNGS: Lungs are well inflated. Diffuse bilateral airspace opacities, increased from prior exam. PLEURA: No pneumothorax. Small left pleural effusion. HEART AND MEDIASTINUM: The cardiomediastinal silhouette is enlarged. Median sternotomy wires and mediastinal surgical clips are again seen. BONES AND SOFT TISSUES: No acute osseous lesion. Soft tissues are unremarkable. UPPER ABDOMEN: No free air under the diaphragm. IMPRESSION: Interval increase in bilateral airspace opacities, representing worsening edema and/or pneumonia. Small left pleural effusion has also increased from prior exam. Signed by: Dr. Bhupinder Chang MD on 11/01/2019 6:36 AM
[2019-11-01] MEDS ORDERED: POTASSIUM CHLORIDE 20 MEQ TAB CR PO STA (06:46)
[2019-11-01] MEDS: PANTOPRAZOLE 40 MG 10ML VIAL IV SCH ×2 (08:38→17:18)
--- NOTE | 2019-11-01 13:38 | Progress Note ---
DATE: SUBJECTIVE: The patient underwent upper endoscopy and colonoscopy. The patient had some gastropathy and possibly some mild bleeding. The patient feels better now. He is not having any fever or chest pain. PHYSICAL EXAMINATION: VITAL SIGNS: The patient is afebrile. The blood pressure is 126/59, saturation is 96% on 2 L. HEENT: Shows no facial swelling or erythema. CARDIAC: Reveals regular rate and rhythm with normal S1 and S2. LUNGS: Auscultation of lungs reveals clear breath sounds bilaterally. There is no wheezing. ABDOMEN: Soft and nontender. There is no rebound or guarding. EXTREMITIES: Shows no leg edema or calf tenderness. There is no cyanosis or clubbing. SKIN: Shows no rashes. LABORATORY DATA: BUN to creatinine ratio is 12 to 1.27. Potassium is 3.3. Other electrolytes within normal limits. Hemoglobin is 8.7, and platelet count is 132. IMPRESSION: 1. Anemia secondary to acute blood loss. 2. Cirrhosis and portal hypertension. 3. Atrial fibrillation. 4. Acute kidney injury. 5. Diabetes. 6. Hypertension. PLAN: 1. Discussed stopping Xarelto as an outpatient with Cardiology and GI. 2. Continue current medications for gastropathy. 3. Replace potassium. MD ANGEL LUIS Otero/JACKIE /[id number]
[2019-11-01] MEDS: METOPROLOL TARTRATE 25 MG TAB PO SCH (17:18)
[2019-11-01 17:19] LABS: ANION GAP 13.7 mmol/L (8-16); CALCIUM 8.4 mg/dL (8.4-10.2); CREATININE, SERUM 1.3 mg/dL (0.72-1.25); POTASSIUM 3.7 mmol/L (3.5-5.1)
[2019-11-01] MEDS: ATORVASTATIN 20 MG TAB PO SCH (20:55)
[2019-11-02] VITALS (12 sets, daily range): BP systolic 132–145; BP diastolic 73–84
--- NOTE | 2019-11-02 06:40 | NUR ---
DR. Luis GARCIA DOING ROUNDS. NEW ORDERS RECEIVED FOR VITAMIN K 20MG IV PIGGYBACK, SMALL BOWEL SERIES ON 11/03/2019, CBC AND BMP FOR TODAY.
[2019-11-02] MEDS: METOPROLOL TARTRATE 25 MG TAB PO SCH ×2 (08:22→17:09)
[2019-11-02] MEDS: PANTOPRAZOLE 40 MG 10ML VIAL IV SCH ×2 (08:22→16:37)
[2019-11-02] MEDS: LEVOTHYROXINE SODIUM 100 MCG TAB PO SCH (08:22)
[2019-11-02 08:29] LABS: BASOPHILS % 0.2 % (0.0-1.0); EOSINOPHILS # (AUTO) 0.2 (0.0-0.4); EOSINOPHILS % 4.9 % (0.0-6.0); HEMATOCRIT 31.9 % (38.2-49.6); HEMOGLOBIN 8.9 g/dL (14.0-18.0); LYMPHOCYTES # (AUTO) 1.2 (1.0-3.2); LYMPHOCYTES % 25.9 % (18.0-39.1); MEAN CORPUSCULAR HEMOGLOBIN 22.5 pg (28-32); MEAN CORPUSCULAR HGB CONC 27.9 g/dL (31-35); MEAN CORPUSCULAR VOLUME 80.6 fL (81-99); MONOCYTES # (AUTO) 0.4 (0.2-0.8); MONOCYTES % 8.3 % (4.4-11.3); NEUTROPHILS # (AUTO) 2.7 (2.1-6.9); NEUTROPHILS % 60.3 % (38.7-80.0); PLATELET COUNT 139 x10e3/uL (140-360); RED BLOOD COUNT 3.96 x10e6/uL (4.3-5.7); RED CELL DISTRIBUTION WIDTH 20.7 % (11.7-14.4)
[2019-11-02 08:58] LABS: ANION GAP 11.5 mmol/L (8-16); BLOOD UREA NITROGEN 9 mg/dL (7-26); BUN/CREATININE RATIO 8 (6-25); CALCIUM 8.3 mg/dL (8.4-10.2); CARBON DIOXIDE 24 mmol/L (22-29); CHLORIDE 107 mmol/L (98-107); CREATININE, SERUM 1.14 mg/dL (0.72-1.25); EST GLOMERULAR FILTRATION RATE > 60 ML/MIN (60-); GLUCOSE 111 mg/dL (74-118); POTASSIUM 3.5 mmol/L (3.5-5.1); SODIUM 139 mmol/L (136-145)
[2019-11-02] MEDS: PHYTONADIONE 10 MG/ML AMP IV ONE ×2 (09:45→11:24)
[2019-11-02] MEDS ORDERED: SODIUM CHLORIDE 0.9% 50ML 50 ML ONE (09:48)
[2019-11-02 09:49] LABS: HYPOCHROMASIA SLIGHT
[2019-11-02] MEDS ORDERED: PHYTONADIONE 10 MG/ML AMP IV ONE (10:30)
[2019-11-02] MEDS ORDERED: PHYTONADIONE 10MG/ML 10 MG in SODIUM CHLORIDE 0.9% 50ML 50 ML SC ONE (11:00)
[2019-11-02] MEDS: ATORVASTATIN 20 MG TAB PO SCH (20:41)
[2019-11-03] VITALS (7 sets, daily range): BP systolic 134–158; BP diastolic 72–77
[2019-11-03] MEDS: LEVOTHYROXINE SODIUM 100 MCG TAB PO SCH (09:20)
[2019-11-03] MEDS: METOPROLOL TARTRATE 25 MG TAB PO SCH ×2 (09:53→16:58)
[2019-11-03] MEDS: PANTOPRAZOLE 40 MG 10ML VIAL IV SCH ×2 (09:53→16:58)
--- NOTE | 2019-11-03 10:12 | Progress Note ---
DATE: 11/03/2019 I am covering for Dr. Dunne. SUBJECTIVE: Mr. 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 He did receive several units of blood products. He was seen by Dr. Ciro Layne, had an EGD and a colonoscopy. That did not show any significant bleeding. He is going for small-bowel series today and if stable, the plan is to discharge him tomorrow. PHYSICAL EXAMINATION: GENERAL: He is awake and alert. Denies any bleeding. VITAL SIGNS: Temperature is 98.6, blood pressure 143/77. HEART: Regular rate. LUNGS: Clear to auscultation. ABDOMEN: Soft. LABORATORY DATA: On the blood work, white count is 4.48, hemoglobin 8.9, hematocrit 31.9. Potassium 3.5, creatinine is 1.14, glucose is 111. INR 1.48. COVID test came back negative. Hepatitis is pending. Final urine culture, no growth. Chest x-ray done on the shows interval increase in the bilateral airspace opacities representing worsening edema and pneumonia. ASSESSMENT AND PLAN: 1. Upper gastrointestinal bleed. 2. Anemia secondary to acute blood loss. 3. Liver cirrhosis with portal hypertension. 4. Atrial fibrillation. 5. 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 6. Chronic kidney disease, stage 3. 7. Hypertension. 8. Reflux. 9. Coronary artery disease, status post coronary artery bypass graft. 10. Presence of permanent pacemaker. 11. Hyperlipidemia. PLAN: At present time, hemoglobin is stable. Continue ADA diet, sliding scale with insulin. Continue home medications. Discontinue Xarelto. The patient is going to go for small bowel series today since the EGD and the colonoscopy did not show any source of bleeding and the plan is to discharge him tomorrow if he is stable. All this was discussed with the patient. All questions were answered to satisfaction. I spent more than 30 minutes examining the patient, reviewing overnight event and lab results, and discussing plan of care with him. MD JOSSUE Parisi/JACKIE /[id number]
--- NOTE | 2019-11-03 15:00 | Diagnostic Imaging Report ---
EXAM: SMALL BOWEL SERIES DATE: 11/03/2019 11:05 AM INDICATION: Anemia, GI bleed COMPARISON: CT abdomen/pelvis from 10/30/2019 Fluoroscopy Time: 0.2 min. Reference Air Kerma (Ka, r): 4.24 mGy. FINDINGS: Business Functional Analyst images demonstrate partially visualized pacing leads and median sternotomy wires. Enteric contrast material provided orally without complication. Small bowel transit time is within normal limits with contrast material reaching the colon within 2.5 hours. Small bowel mucosa is unremarkable without evidence for fixed filling defect, stricture, intrinsic/extrinsic compression, extravasation, or other mucosal abnormality. Spot images were obtained of the terminal ileum which demonstrates no significant abnormalities. IMPRESSION: Unremarkable small bowel follow-through examination. Signed by: Dr. Ricky King MD on 11/03/2019 2:57 PM
--- NOTE | 2019-11-03 16:53 | NUR ---
Nutrition Intervention Note RD Recommendation(s) for Physician: - Recommend advancing diet as tolerated to ADA 1800/ mechanical soft with Glucerna BID when medically appropriate -Consult speech therapy for reported swallowing difficulty -The patient meets criteria for MODERATE protein-calorie malnutrition. Plan of Care: RD following, monitoring for tolerance and adequacy Nutrition reason for involvement: follow up RD Assessment 11/02: Follow up. Pt is currently NPO and is planned to receive a small bowel series today. It is recorded that pt has been consuming 100% of meals during admission. Will continue to monitor. (10/29) 69yo M, who was admitted with profound fatigue and found to have a hemoglobin of 3.3 and also elevated INR of 3.35. GI has been consulted. Visited pt in the room. [place]raini speaking only. Per daughter on bedside, pt has lost over 30lbs since 05/2019 due to ongoing dental issue. Pt has not been able to get denture done. Pt usually eats a soft food diet with Ensure 1-2x a day. No complains of nausea or vomiting. LBM 3 days ago. Per daughter, pt also had some swallowing difficulty with both foods and liquid TUGBOAT CAPTAIN. Currently NPO. Will continue to monitor and follow. Principal Problems/Diagnoses: Anemia secondary to blood loss, GI bleed PMH: hypertension, CAD with CABG in 2008, atrial fibrillation/atrial flutter (taking Xarelto), previous ablation, hyperlipidemia, diabetes type 2, thyroid disease, CHF with LVEF of 30% I/O: 720/650 GI: abdomen soft, flat, last recorded BM 10/31 Skin: intact Labs: 11/01: Ca 8.3 (10/29) K 3.4 L, creatinine 1.51 H, Ca 8.2 L Meds: (10/29) lasix, protonix, metoprolol, levothyroxine, atorvastatin Ht: 67in Wt: 167.88lb BMI: 26.3kg/m2 IBW: 148lb +/- 10% Malnutrition Evaluation (10/30/2019) The patient meets criteria for MODERATE protein-calorie malnutrition. 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 Nutrition Care Level: moderate Nutrition Diagnosis: Malnutrition related to decreased PO intake as evidenced by 30lbs weight loss in 6 months, loss of muscle and fat mass. Goal: Patient will meet 75-100% of estimated needs by follow up Progress: pt is currently NPO Interventions: Modified diet, Commercial beverage, Recommended Modifications Monitoring/Evaluation: Total energy intake, Total protein intake, Modified diet, Liquid supplement, Weight change Signed: Nani Braun RD, LD
--- NOTE | 2019-11-03 19:06 | NUR ---
WALKING ROUNDS PERFORMED, RECEIVED PT LAYING SEMI FOWLERS IN BED, AAOX3, RR EVEN AND NON-LABORED, ON ROOM AIR. NO S/SX OF DISTRESS NOTED. LEFT PT LAYING SEMI FOWLERS IN BED, BED IN LOW LOCKED POSITION, SIDE RAILS UPX2, CALL LIGHT AND PHONE WITHIN REACH.
--- NOTE | 2019-11-03 19:23 | NUR ---
bedside shift report received pt in stable condition denies pain at this time, updated on poc voiced understanding, call light in reach will continue to monitor
[2019-11-03] MEDS: ATORVASTATIN 20 MG TAB PO SCH (21:56)
[2019-11-03 23:00] LABS: FOLATE 6.3 ng/mL (7.0-15.4)
[2019-11-03 23:40] LABS: FERRITIN 13.49 ng/mL (21.81-274.66)
[2019-11-04] VITALS (8 sets, daily range): BP systolic 137–150; BP diastolic 70–87
[2019-11-04] MEDS ORDERED: CYANOCOBALAMIN INJ 1,000 MCG/ML VIAL IM ONE (02:15)
[2019-11-04] MEDS: CYANOCOBALAMIN INJ 1,000 MCG/ML VIAL IM SCH (02:37)
[2019-11-04 05:07] LABS: INR 1.36; PROTHROMBIN TIME 17.7 seconds (11.9-14.5)
[2019-11-04 06:54] LABS: HEMATOCRIT 31.8 % (38.2-49.6); HEMOGLOBIN 8.8 g/dL (14.0-18.0); MEAN CORPUSCULAR HEMOGLOBIN 22.3 pg (28-32); MEAN CORPUSCULAR HGB CONC 27.7 g/dL (31-35); MEAN CORPUSCULAR VOLUME 80.5 fL (81-99); PLATELET COUNT 121 x10e3/uL (140-360); RED BLOOD COUNT 3.95 x10e6/uL (4.3-5.7); RED CELL DISTRIBUTION WIDTH 21.5 % (11.7-14.4)
--- NOTE | 2019-11-04 07:00 | NUR ---
BEDSIDE SHIFT REPORT RECEIVED PT IN STABLE CONDITION, DENIES PAIN AT THIS TIME, R AC 20G SL NO SS OF INFILTRATION NOTED, NO OTHER CO VOICED CALL LIGHT IN REACH WILL CONTINUE TO MONITOR
[2019-11-04 07:29] LABS: ANISOCYTOSIS MODERATE; EOSINOPHILS % (MANUAL) 8 % (0-7); LYMPHOCYTES % (MANUAL) 26 % (19-48); MONOCYTES % (MANUAL) 7 % (3.4-9.0); NEUTROPHILS % (MANUAL) 59 % (40-74); RBC MORPHOLOGY COMMENT ABNORMAL
[2019-11-04 07:30] LABS: HYPOCHROMASIA MODERATE; PLATELET ESTIMATE ADEQUATE; PLATELET MORPHOLOGY COMMENT RARE EDTA CLUMPING
[2019-11-04 07:31] LABS: OVALOCYTES FEW; POIKILOCYTOSIS SLIGHT
[2019-11-04] MEDS: LEVOTHYROXINE SODIUM 100 MCG TAB PO SCH (08:24)
[2019-11-04] MEDS: PANTOPRAZOLE 40 MG 10ML VIAL IV SCH ×2 (08:25→17:34)
[2019-11-04] MEDS: METOPROLOL TARTRATE 25 MG TAB PO SCH ×2 (08:25→17:37)
[2019-11-04] MEDS: IRON SUCROSE 100 MG in SODIUM CHLORIDE 0.9% 100 ML 100 ML IV SCH (10:00)
--- NOTE | 2019-11-04 10:43 | Progress Note ---
DATE: 11/04/2019 SUBJECTIVE: Mr. Kingston is a 69-year-old man with history of diabetes, hypertension, coronary artery disease, status post CABG, atrial fibrillation, who was on Xarelto. He was seen by Cardiology, his hemoglobin was 3.3, so he was sent to the emergency room for admission. EGD and colonoscopy were done as well as small bowel series that came back with no evidence of bleeding. Today, he is going to get IV iron. OBJECTIVE: GENERAL: Today, he is awake and alert. VITAL SIGNS: Temperature is 96.6, blood pressure 150/70. HEART: Regular rate. LUNGS: Clear to auscultation. ABDOMEN: Distended and soft. LABORATORY DATA: On the blood work, white count 3.72, hemoglobin 8.8, hematocrit 31.8. Potassium 3.5, creatinine 1.14. INR 1.36. COVID came back negative. ASSESSMENT: 1. Upper gastrointestinal bleed. 2. Anemia secondary to acute blood loss. 3. Liver cirrhosis with portal hypertension. 4. Atrial fibrillation. 5. 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 6. Chronic kidney disease, stage 3. 7. Hypertension. 8. Reflux. 9. Coronary artery disease, status post coronary artery bypass graft. 10. Presence of permanent pacemaker. 11. Hyperlipidemia. PLAN: At present time, he is to continue ADA diet, sliding scale with insulin. Monitor hemoglobin, hematocrit. Had EGD, colonoscopy and small bowel series that came back negative. He is going to have some vitamin B12 and some IV iron. If it is stable, he may be discharged home tomorrow. All this was discussed in detail with the patient. All questions were answered to satisfaction. MD JOSSUE Parisi/MODL /[id number]
[2019-11-04] MEDS: ATORVASTATIN 20 MG TAB PO SCH (21:07)
[2019-11-05] VITALS (8 sets, daily range): BP systolic 121–160; BP diastolic 60–86
--- NOTE | 2019-11-05 07:00 | NUR ---
RECEIVED PATIENT AWAKE RESTING IN BED NO S/S OF DISTRESS. BED LOW, WHEELS LOCKED, SIDE RAILS X2. CALL LIGHT IN REACH WILL CONTINUE TO MONITOR PATIENT.
[2019-11-05] MEDS: PANTOPRAZOLE 40 MG 10ML VIAL IV SCH ×2 (09:51→17:07)
[2019-11-05] MEDS: LEVOTHYROXINE SODIUM 100 MCG TAB PO SCH (09:51)
[2019-11-05] MEDS: IRON SUCROSE 100 MG in SODIUM CHLORIDE 0.9% 100 ML 100 ML IV SCH (09:51)
[2019-11-05] MEDS: CYANOCOBALAMIN INJ 1,000 MCG/ML VIAL IM SCH (09:51)
[2019-11-05] MEDS: METOPROLOL TARTRATE 25 MG TAB PO SCH ×2 (09:54→17:00)
--- NOTE | 2019-11-05 14:09 | NUR ---
SPOKE WITH DR. JJ REGARDING PATIENT COMPLAINT OF NAUSEA AND ABDOMINAL PAIN. NEW ORDER FOR ZOFRAN 4 MG IV Q6 HR PRN NAUSEA. NEW ORDERS IMPLEMENTED.
[2019-11-05] MEDS ORDERED: ONDANSETRON HCL INJ 2MG/ML 2ML 2 MG/ML VIAL IV PRN (14:15)
--- NOTE | 2019-11-05 14:45 | NUR ---
SPOKE WITH DR. GARCIA REGARDING PATIENT COMPLAINT OF ABDOMINAL PAIN. NEW ORDER FOR HIDA SCAN. NEW ORDERS IMPLEMENTED.
--- NOTE | 2019-11-05 19:15 | NUR ---
BEDSIDE SHIFT REPORT RECEIVED WENDIE SIDHU RN. PT IS ALERT AND ORIENTED X3. RESPIRATIONS ARE REGULAR AND UNLABORED. PT VOIDING WITHOUT DIFFICULTY PER URINAL. URINE IS CLEAR YELLOW.PT REFUSING PO MEDS - MAKE HIS STOMACH HURT.PT TO HAVE HIDA SCAN IN AM. 20 G SL LEFT FA- INTACT WITH HEALTHY SITE.. CALL LITE WITHIN REACH. BED LOCKED AND IN LOW POSITION.
[2019-11-05] MEDS: ATORVASTATIN 20 MG TAB PO SCH (20:29)
[2019-11-06] VITALS (8 sets, daily range): BP systolic 135–153; BP diastolic 72–82
--- NOTE | 2019-11-06 01:47 | Discharge Summary ---
HOSPITAL COURSE: Mr. Kingston is a 69-year-old man with history of diabetes, hypertension, coronary artery disease, status post CABG, atrial fibrillation, who was admitted with hemoglobin of 3.3. The patient was taking Xarelto, had EGD, colonoscopy, small-bowel series, that did not show any source for the bleeding. He is going to receive some more IV iron today and if stable, he is going to be discharged home. PHYSICAL EXAMINATION: GENERAL: He is awake and alert. VITAL SIGNS: Temperature is 97.5, blood pressure 138/73. HEART: Regular rate. LUNGS: Clear to auscultation. ABDOMEN: Soft. LABORATORY DATA: On the blood work; white count 3.72, hemoglobin 8.8, hematocrit 31.8. Potassium 3.5, creatinine 1.14, glucose 111. INR 1.36. DISCHARGE DIAGNOSES: 1. Upper gastrointestinal bleed. 2. Anemia secondary to acute blood loss. 3. Liver cirrhosis with portal hypertension. 4. Atrial fibrillation. 5. 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 6. Chronic kidney disease, stage 3. 7. Hypertension. 8. Reflux. 9. Coronary artery disease, status post coronary artery bypass graft. 10. Presence of permanent pacemaker. 11. Hyperlipidemia. PLAN: At the present time, if it is okay with the consultants, to discharge him home on ADA diet. Continue his home medications. Follow up with Dr. Ciro Layne as directed by his team. Follow up with Dr. Dunne next week. Please see home medication reconciliation list. All this was discussed with the patient. All questions were answered to satisfaction. MD JOSSUE Parisi/JACKIE /[id number]
[2019-11-06] MEDS: LEVOTHYROXINE SODIUM 100 MCG TAB PO SCH (05:04)
--- NOTE | 2019-11-06 07:00 | NUR ---
RECEIVED PATIENT AWAKE RESTING IN BED NO S/S OF DISTRESS. BED LOW, WHEELS LOCKED, SIDE RAILS X2. CALL LIGHT IN REACH WILL CONTINUE TO MONITOR PATIENT.
--- NOTE | 2019-11-06 08:18 | NUR ---
PATIENT OFF UNIT FOR HIDA SCAN.
--- NOTE | 2019-11-06 10:00 | NUR ---
PATIENT BACK FROM HIDA SCAN IN STABLE CONDITION.
[2019-11-06] MEDS: PANTOPRAZOLE 40 MG 10ML VIAL IV SCH ×2 (10:39→16:34)
[2019-11-06] MEDS: IRON SUCROSE 100 MG in SODIUM CHLORIDE 0.9% 100 ML 100 ML IV SCH (10:39)
[2019-11-06] MEDS: CYANOCOBALAMIN INJ 1,000 MCG/ML VIAL IM SCH (10:39)
[2019-11-06] MEDS: METOPROLOL TARTRATE 25 MG TAB PO SCH ×2 (10:40→16:34)
--- NOTE | 2019-11-06 16:31 | Diagnostic Imaging Report ---
Hepatobiliary Scan with Gallbladder Ejection Fraction Clinical information: Abdominal pain Technique: Following intravenous administration of 6.6 millicuries of Tc-99m mebrofenin, dynamic images of the abdomen in the anterior projection were obtained through 60 minutes. Sincalide (CCK analog) 1.6 micrograms was administered intravenously over 30 minutes with additional imaging for determination of gallbladder ejection fraction. Discussion: Perfusion of the liver is normal. Extraction of tracer by the liver parenchyma is normal. Tracer appears promptly within the biliary tract. The gallbladder begins to fill at 18 minutes post injection of tracer and fills adequately. Tracer is seen in the small bowel by 18 minutes. There is no contractile response by the gallbladder to the pharmacologic dose of sincalide. No emptying of the gallbladder occurs during the 30 minute infusion. Impression: 1. Filling of the gallbladder excludes acute cystic duct obstruction/acute cholecystitis. 2. The gallbladder ejection fraction is undefined as there is no emptying of the gallbladder during the infusion of sincalide. This absence of a contractile response to sincalide supports the clinical diagnosis of chronic cholecystitis/gallbladder dyskinesia. Signed by: Dr. Jeannette Wall M.D. on 11/06/2019 4:28 PM
--- NOTE | 2019-11-06 19:15 | NUR ---
RECEIVED BEDSIDE SHIFT REPORT FROM DAY RN. PT IS ALERT AND ORIENTED X3. PT DENIES PAIN. PT REPORTS HIS STOMACH IS GREAT. HIDA SCAN ABNORMAL. DR MARISCAL CALL FOR CONSULT WITH DR HUTTON. DAUGHTER CALL ASKING QUESTIONS ABOUT TEST RESULTS AND THE PLAN OF CARE. NURSE REFERRED DAUGHER TO PHYSICIAN. PT VOIDING PER URINAL. PT RT UPPER ARM REDDENED- PT REPORT FROM OLD IV SITE. 20 G SL IN LEFT FA. CALL LIGHT WITHIN REACH. bED LOCKED AND IN LOW POSITION.
[2019-11-06] MEDS: ATORVASTATIN 20 MG TAB PO SCH (22:42)
--- NOTE | 2019-11-06 23:33 | NUR ---
DR HUTTON CALLED BACK AFTER MESSAGE FOR CONSULT TO ANSWERING SERVICE. hE WILL SEE PT IN AM.
[2019-11-07 04:00] VITALS: BP 136/73
[2019-11-07 05:41] LABS: BASOPHILS % 0.2 % (0.0-1.0); EOSINOPHILS # (AUTO) 0.3 (0.0-0.4); EOSINOPHILS % 6.2 % (0.0-6.0); HEMATOCRIT 30.4 % (38.2-49.6); HEMOGLOBIN 8.4 g/dL (14.0-18.0); LYMPHOCYTES # (AUTO) 1.1 (1.0-3.2); LYMPHOCYTES % 20.5 % (18.0-39.1); MEAN CORPUSCULAR HEMOGLOBIN 22.3 pg (28-32); MEAN CORPUSCULAR HGB CONC 27.6 g/dL (31-35); MEAN CORPUSCULAR VOLUME 80.9 fL (81-99); MONOCYTES # (AUTO) 0.4 (0.2-0.8); MONOCYTES % 7.1 % (4.4-11.3); NEUTROPHILS # (AUTO) 3.4 (2.1-6.9); NEUTROPHILS % 65.8 % (38.7-80.0); PLATELET COUNT 115 x10e3/uL (140-360); RED BLOOD COUNT 3.76 x10e6/uL (4.3-5.7); RED CELL DISTRIBUTION WIDTH 21.9 % (11.7-14.4)
[2019-11-07] MEDS: LEVOTHYROXINE SODIUM 100 MCG TAB PO SCH (05:56)
--- NOTE | 2019-11-07 07:00 | NUR ---
RECEIVED BEDSIDE SHIFT REPORT FROM OFF GOING NIGHT NURSE. PATIENT IN STABLE CONDITION, NO S/S OF DISTRESS NOTED. NO PAIN VOICED. IV SITE ASYMPTOMATIC AND PATENT, TRANSPARENT DRESSING APPLIED C/D/I. BED IN LOWEST POSITION AND LOCKED. CALL LIGHT WITHIN REACH.
[2019-11-07 07:37] VITALS: BP 153/77
--- NOTE | 2019-11-07 07:57 | Discharge Summary ---
HISTORY: A 69-year-old male with past medical history positive for coronary artery disease, CHF with chronic systolic congestive heart failure, ejection fraction 35%, cirrhosis of the liver, hypertension, diabetes, was sent from [employer]'s office because he was found to have extremely very low hemoglobin when he came to the ER was 3.8. He received blood transfusion. He had an upper endoscopy, lower endoscopy, and small bowel series, showed no evidence of any active gastrointestinal bleed. The patient received blood transfusion. Hemoglobin and hematocrit stable. The patient has no evidence of any clinical bleed right now. The patient was found to have gallstones discharge. HIDA scan has been done and the report is pending. He was found to have also gallstones with mild gallbladder wall thickening, but no sonographic evidence of Ballesteros sign. We are waiting for the report on the HIDA scan. If the HIDA scan comes back negative, then the patient might be able to go home. If the patient has cirrhosis of the liver, he is a very poor candidate for cholecystectomy unless he has severe symptoms. PHYSICAL EXAMINATION: HEART: Showed irregularly irregular heart rate. Normal S1 and S2 sound. LUNGS: Clear bilaterally. ABDOMEN: Soft, nontender. No distention. No visceromegaly. EXTREMITIES: Show no edema. LABORATORY DATA: On the blood work, we have CBC; white blood count 3.72, hemoglobin 8.8, hematocrit 31.8, and platelet count . On the chemistry we have BMP; sodium 139, potassium 3.5, chloride 107, CO2 of 24, BUN 9, creatinine 1.14, glucose 111, calcium 8.3. Iron 19, TIBC 353, transferrin is 252, ferritin is 13.49, total bilirubin 2.3. AST 21, ALT 14, alkaline phosphatase 99, total protein 6.4, albumin 3.1, globulin 3.3. Vitamin B12 is 290, folic acid 6.3. Alpha-fetoprotein is 1.1, which is normal. FINAL IMPRESSION: 1. Acute anemia, most likely secondary to gastrointestinal bleed. 2. Cirrhosis of the liver. 3. Coronary artery disease. 4. Chronic systolic congestive heart failure with ejection fraction of 30%. 5. Uncontrolled diabetes mellitus type 2. 6. Iron deficiency anemia. 7. Gallstones. PLAN OF TREATMENT: If the HIDA scan is negative, the patient might be able to be discharged home today. Continue with Lipitor 40 mg daily, levothyroxine 100 mcg daily, metoprolol 25 mg twice a day, Protonix 40 mg twice a day. We are holding the aspirin and Xarelto for the severe bleeding that he has. Dr. Brayden Candelario, Cardiology will see the patient and decide when to start the Xarelto and the aspirin also. He is going to follow up with Dr. Ciro Layne for Gastroenterology and myself in a week if the HIDA scan is negative for any gallbladder dyskinesia. The patient is very high risk for surgery if he needs any cholecystectomy due to cirrhosis of the liver and portal hypertension and severe cardiomyopathy. So, surgery will be an option only in cases of severe symptomatic gallstones. The patient is asymptomatic right now. MD CHRISTY Lopez/JACKIE /[id number]
[2019-11-07 07:58] VITALS: BP 153/77
[2019-11-07] MEDS: CYANOCOBALAMIN INJ 1,000 MCG/ML VIAL IM SCH (09:47)
[2019-11-07] MEDS: PANTOPRAZOLE 40 MG 10ML VIAL IV SCH (09:47)
[2019-11-07] MEDS: IRON SUCROSE 100 MG in SODIUM CHLORIDE 0.9% 100 ML 100 ML IV SCH (09:47)
[2019-11-07] MEDS: METOPROLOL TARTRATE 25 MG TAB PO SCH (09:48)
--- NOTE | 2019-11-07 11:43 | NUR ---
RECEIVED REPORT FROM MICHAEL SIERRA. PATIENT ARRIVED TO THE UNIT @ 5713. -PATIENT IN STABLE CONDITION, NO S/S OF DISTRESS NOTED. NO PAIN VOICED. DIEGO APPLIED 26FR WITH30 CC BALLOON WITH CONTINUOUS BLADDER IRRIGATION. DIEGO DRAINING CLEAR INTO THE DRAINAGE BAG. IV FLUIDS INFUSING, SITE ASYMPTOMATIC AND PATIENT, TRANSPARENT DRESSING APPLIED C/D/I. BED IN LOWEST POSITION AND LOCKED. CALL LIGHT WITHIN REACH. Addendum: 11/07/19 at 1410 by Aileen Cronin RN INCORRECT CHART
[2019-11-07 11:52] VITALS: BP 147/85
[2019-11-07] MEDS ORDERED: PANTOPRAZOLE SO40 MG PO (14:56)
[2019-11-07] MEDS ORDERED: FERROUS SULFAT325 MG PO (14:57)
[2019-11-07] MEDS ORDERED: LISINOPRIL10 MG PO (14:58)
--- NOTE | 2019-11-07 15:52 | NUR ---
Nutrition Intervention Note RD Recommendation(s) for Physician: - Recommend to continue current diet order -Recommend Glucerna BID when medically appropriate -consider consulting speech therapy for reported swallowing difficulty on initial assessment -The patient meets criteria for MODERATE protein-calorie malnutrition. Plan of Care: RD following, monitoring for tolerance and adequacy, oral supplement recommendation Nutrition reason for involvement: follow up RD Assessment 11/06: Follow up. RN reports pt ate 50% of his breakfast this morning and it is recorded pt consumed 30% of dinner yesterday. No N/V noted. Recommend Glucerna BID for added nutrition. Will continue to monitor. 11/02: Follow up. Pt is currently NPO and is planned to receive a small bowel series today. It is recorded that pt has been consuming 100% of meals during admission. Will continue to monitor. (10/29) 69yo M, who was admitted with profound fatigue and found to have a hemoglobin of 3.3 and also elevated INR of 3.35. GI has been consulted. Visited pt in the room. Turkmen speaking only. Per daughter on bedside, pt has lost over 30lbs since 05/2019 due to ongoing dental issue. Pt has not been able to get denture done. Pt usually eats a soft food diet with Ensure 1-2x a day. No complains of nausea or vomiting. LBM 3 days ago. Per daughter, pt also had some swallowing difficulty with both foods and liquid [employer]. Currently NPO. Will continue to monitor and follow. Principal Problems/Diagnoses: Anemia secondary to blood loss, GI bleed PMH: hypertension, CAD with CABG in 2008, atrial fibrillation/atrial flutter (taking Xarelto), previous ablation, hyperlipidemia, diabetes type 2, thyroid disease, CHF with LVEF of 30% GI: abdomen soft, non-tender, last recorded BM 11/06 Skin: intact Labs: 11/06: no updated labs 11/01: Ca 8.3 (10/29) K 3.4 L, creatinine 1.51 H, Ca 8.2 L Meds: metoprolol, vitamin B12, IV iron, protonix, levothyroxine, atorvastatin, zofran Ht: 67in Wt: 167.88lb BMI: 26.3kg/m2 IBW: 148lb +/- 10% Malnutrition Evaluation (10/30/2019) The patient meets criteria for MODERATE protein-calorie malnutrition. 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 Nutrition Care Level: moderate Nutrition Diagnosis: Malnutrition related to decreased PO intake as evidenced by 30lbs weight loss in 6 months, loss of muscle and fat mass. Goal: Patient will meet 75-100% of estimated needs by follow up Progress: progressing Interventions: Modified diet, Commercial beverage, Recommended Modifications Monitoring/Evaluation: Total energy intake, Total protein intake, Modified diet, Liquid supplement, Weight change Signed: Nani Braun RD, LD
--- NOTE | 2019-11-07 15:55 | NUR ---
Patient discharged home. Patient off the unit @ 1545 via wheelchair to the lobby accompanied by PCT. Patient in stable condition, No s/s of distress noted. No pain voiced. IV access removed with tip intact. All personal items taken with patient. Discharge teaching and instruction along with prescriptions given to the patient and daughter. Patient and daughter verbalized understanding.
--- NOTE | 2019-11-07 21:55 | Discharge Summary ---
HISTORY: The patient came here with severe anemia, sent from Dr. Brayden Candelario's office. Hemoglobin was 3.3. He received blood transfusion. Gastroenterology, Dr. Ciro Layne did an upper and lower endoscopy, small bowel capsule endoscopy. No evidence of any active bleeding. The patient's Xarelto and aspirin have been placed on hold because of that. He also was incidentally found to have gallstones. HIDA scan was abnormal, but the patient is not a candidate for any kind of surgery because of cirrhosis of the liver. PHYSICAL EXAMINATION: HEART: Showed regular rhythm. Normal S1 and S2 sound. LUNGS: Clear bilaterally. ABDOMEN: Soft. EXTREMITIES: Show no edema. FINAL IMPRESSION: 1. Acute anemia, most likely secondary to occult gastrointestinal bleed, but no evidence of any active bleeding right now. 2. Cirrhosis of the liver. 3. History of coronary artery disease. 4. Chronic systolic congestive heart failure with ejection fraction of 30%. 5. Uncontrolled diabetes mellitus type 2. 6. Iron deficiency anemia. 7. Gallstones. PLAN OF TREATMENT: The patient is going home today. Dr. Ferrari, surgeon does not think he is a candidate for surgery because of the cirrhosis and he is asymptomatic right now for gallstones. Aspirin and Xarelto are going to be placed on hold because of the massive amount of blood he lost. He is going to follow up with Dr. Brayden Candelario, electromechanical technologist, who is going to re-evaluate the need for Xarelto and aspirin. Discharge summary has been done yesterday. Dr. Tanner also seen him for Gastroenterology point of view. Continue same medication dictated yesterday. The patient is to come to the ER should his symptom recurs. Case discussed with the family at the bedside also. MD CHRISTY Lopez/JACKIE /[id number]
== END 2019-11-07 16:01 | disposition home or self-care (01) | DRG 378 ==
LOC: ER 13:47 → EDBD 13:47 → ERHOLD 15:41 → ICU 23:58 → MED/SURG3 11-01 11:28 → ICU 11-01 11:40 → MED/SURG 11-01 19:38
PROVIDERS: ADMIT Internal Medicine; ATTEND Internal Medicine
PROC: 30233K1 Transfusion of Nonautologous Frozen Plasma into Peripheral Vein, Percutaneous Approach (ICD-10-PCS; 2019-10-29)
PROC: 30233N1 Transfusion of Nonautologous Red Blood Cells into Peripheral Vein, Percutaneous Approach (ICD-10-PCS; 2019-10-29)
PROC: 0DJ08ZZ Inspection of Upper Intestinal Tract, Via Natural or Artificial Opening Endoscopic (ICD-10-PCS; principal; 2019-10-31 16:30)
PROC: 0DJD8ZZ Inspection of Lower Intestinal Tract, Via Natural or Artificial Opening Endoscopic (ICD-10-PCS; 2019-10-31 16:30)
DX: K57.31 Diverticulosis of large intestine without perforation or abscess with bleeding (principal); D62 Acute posthemorrhagic anemia; K76.6 Portal hypertension; E11.22 Type 2 diabetes mellitus with diabetic chronic kidney disease; K31.89 Other diseases of stomach and duodenum; K44.9 Diaphragmatic hernia without obstruction or gangrene; K29.71 Gastritis, unspecified, with bleeding; K64.8 Other hemorrhoids; Z87.11 Personal history of peptic ulcer disease; K20.9 Esophagitis, unspecified; K74.60 Unspecified cirrhosis of liver; I25.10 Atherosclerotic heart disease of native coronary artery without angina pectoris; Z95.1 Presence of aortocoronary bypass graft; E78.5 Hyperlipidemia, unspecified; I12.9 Hypertensive chronic kidney disease with stage 1 through stage 4 chronic kidney disease, or unspecified chronic kidney disease; N18.3 Chronic kidney disease, stage 3 (moderate); K21.9 Gastro-esophageal reflux disease without esophagitis; Z95.0 Presence of cardiac pacemaker; I48.91 Unspecified atrial fibrillation; Z11.59 Encounter for screening for other viral diseases
CPT/HCPCS: 36415; 43235; 45378; 71045; 74176; 74250; 76705; 78227; 80048; 80053; 81001; 82105; 82550; 82553; 82607; 82728; 82746; 82948; 83540; 84466; 84484; 85007; 85025; 85027; 85045; 85610; 85730; 86850; 86900; 86920; 87086; 87635; 93005; 99284; A9537; J1756; J1940; J2353; J2354; J2405; J3420; J3430; J7050; P9016; P9017